=== PATIENT | female | born 1965 | race Two or more races ===

== ENCOUNTER 2024-12-16 18:32 | Inpatient (IN) | payer MEDICAID, SELFPAY ==
[2024-12-16 18:54] VITALS: BP 129/74; PULSE 84; RESP 16; TEMP 36.8; O2SAT 97; BMI 26.5
--- NOTE | 2024-12-16 19:03 | PD.EDRME ---
Rapid Medical Screening Exam RME Arrival date/time: 12/16/24 18:32 59-year-old female past medical history of hypertension, CVA, and EtOH presents emergency department complaining of nausea and shakiness after patient is attempting to detox from alcohol. Patient reports last drink was this morning. Chief Complaint: Flu Like Symptoms Time Seen by Provider: 12/16/24 18:34 Vital signs: Vital Signs Temperature 98.3 F 12/16/24 18:54 Pulse Rate 84 12/16/24 18:54 Respiratory Rate 16 12/16/24 18:54 Blood Pressure 129/74 12/16/24 18:54 Pulse Oximetry (%) 97 12/16/24 18:54 Oxygen Delivery Method Room Air 12/16/24 18:54 Vital signs reviewed by provider: Yes
--- NOTE | 2024-12-16 19:04 | EKG_ITS ---
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
[2024-12-16] MEDS: LORazepam 2 MG/ML VIAL IM (19:13)
[2024-12-16 19:25] LABS: Basophils % (Auto) 0 % (0-2.5); Eosinophils # (Auto) 0.1 Thou/mm3 (0.0-0.5); Eosinophils % (Auto) 1 % (0-10); Hematocrit 31.4 % (36.0-46.0); Hemoglobin 11.7 g/dL (12.0-16.0); Immature Granulocytes % (Auto) 0 % (0-0); Immature Granulocytes Auto 0.03 Thou/mm3 (0.00-0.00); Lymphocytes # (Auto) 0.5 Thou/mm3 (1.0-4.8); Lymphocytes % (Auto) 6 % (10-50); Mean Corpuscular HGB Conc 37.3 g/dl (31.0-37.0); Mean Corpuscular Hemoglobin 35.5 pg (25.0-35.0); Mean Corpuscular Volume 95 fL (80-100); Monocytes # (Auto) 0.4 Thou/mm3 (0.0-0.8); Monocytes % (Auto) 5 % (0-12); Neutrophils # (Auto) 7.6 Thou/mm3 (1.8-7.7); Neutrophils % (Auto) 88 % (37-80); Nucleated Red Blood Cell % 0 /100 WBC (0); RDW Standard Deviation 42.7 fL (36.4-46.3); White Blood Count 8.6 Thou/mm3 (3.6-11.0)
[2024-12-16 19:31] LABS: Platelet Count 60 Thou/mm3 (140-440)
[2024-12-16 19:42] LABS: INR 1.1 (0.9-1.3); Partial Thromboplastin Time 31.4 Seconds (22.0-36.0)
[2024-12-16 19:44] LABS: B-Type Natriuretic Peptide 38 pg/mL (0-100)
[2024-12-16 20:03] LABS: Slide Review Platelets confirmed
[2024-12-16 20:14] LABS: Collection Type, Urine Clean Catch
[2024-12-16 20:15] LABS: Alanine Aminotransferase 71 U/L (10-49); Albumin, Serum 4.8 gm/dL (3.5-5.0); Albumin/Globulin Ratio 1.5 (1.2-2.2); Alcohol, Blood Medical < 3.0 mg/dL (0-10.0); Alkaline Phosphatase 182 U/L (46-116); Anion Gap 9 (7-16); Aspartate Amino Transferase 217 U/L (0-34); BUN/Creatinine Ratio 21 Ratio (12-20); Bilirubin,Total 4.2 mg/dL (0.3-1.2); Blood Urea Nitrogen 17 mg/dL (9-23); Calcium 10.1 mg/dL (8.3-10.6); Calcium (Corrected) 10.1 mg/dL (8.5-10.1); Carbon Dioxide 29.8 mMol/L (20.0-31.0); Chloride 80 mMol/L (98-107); Creatinine (Component) 0.8 mg/dL (0.6-1.3); Estimated Creatinine Clearance 57.6 mL/min (>60); Globulin 3.3 gm/dL (2.3-3.5); Glucose 123 mg/dL (74-106); Magnesium 1.7 mg/dL (1.6-2.6); Osmolality,Calculated 242 (275-295); Potassium 3.5 mMol/L (3.4-5.1); Total Protein 8.1 gm/dL (5.7-8.2); Troponin I 0.023 ng/mL (0.0-0.045); eGFR > 60 See Note
[2024-12-16 20:19] LABS: Sodium 119 mMol/L (136-145)
[2024-12-16 20:33] LABS: Amphetamine/Methamp Scrn,U Negative (Negative); Barbiturate Screen,Urine Negative (Negative); Benzodiazepines Screen,Urine Negative (Negative); Benzoylecgonine Screen, Ur Negative (Negative); Fentanyl Screen,Urine Negative (Negative); Opiate Screen,Urine Negative (Negative); THC Screen,Urine Negative (Negative)
[2024-12-16 20:35] LABS: Bacteria,Urine Rare; Bilirubin,Urine Negative (Negative); Blood,Urine Negative (Negative); Clarity,Urine Turbid (Clear/Hazy); Color,Urine Yellow (Lt Yel-Yel); Glucose, Urine Negative (Negative); Ketones,Urine Trace (Negative); Leukocyte Esterase,Urine Negative (Negative); Nitrite,Urine Negative (Negative); Protein,Urine 1+ (Neg - Trace); RBC,Urine 6 /hpf (0-3); Specific Gravity,Urine 1.026 (1.001-1.035); Squamous Epithelial Cell,Urine < 1 /hpf (0-5); Urobilinogen,Urine OVER mg/dL (0.0-1.0); WBC,Urine 3 /hpf (0-5)
[2024-12-16 20:44] VITALS: BP 133/73; PULSE 91; RESP 17; TEMP 36.9; O2SAT 100
[2024-12-16 20:48] VITALS: BP 125/76; PULSE 77; RESP 18; O2SAT 100
--- NOTE | 2024-12-16 21:00 | EDNOTE_ITS ---
ED General RME/HPI General Chief complaint: Flu Like Symptoms Stated complaint: COUGH, N/V X 1 MO; EXTREME DEPRESSION, ETOH ABUSE Time Seen by Provider: 12/16/24 18:34 Arrival date/time: 12/16/24 18:32 CC: Shakiness, nausea. Patient states she has been drinking a bottle half of wine for the last 45 days after correction, patient states she has had several episodes of nausea vomiting. She last drink was this morning. The patient drinks approximately 1-1/2 bottles of wine a day. Patient denies fever chills chest pain shortness of breath or difficulty breathing. The patient states she retired from work 45 days ago and began drinking, and realized that she is now sick and tried to stop drinking, which time she came into the emergency room. RME / HPI RME / HPI narrative: 12/16/24 18:32 59-year-old female past medical history of hypertension, CVA, and EtOH presents emergency department complaining of nausea and shakiness after patient is attempting to detox from alcohol. Patient reports last drink was this morning. Related Data Home Medications ?Medication ?Instructions ?Recorded ?Confirmed escitalopram oxalate 10 mg tablet 20 mg PO QDAY 12/17/24 omeprazole 20 mg capsule,delayed 20 mg PO QDAY 5 12/17/24 release Previous Rx's ?Medication ?Instructions ?Recorded folic acid 1 mg tablet 1 mg PO BID 30 days #60 tabs 12/20/24 propranolol 10 mg tablet 10 mg PO BID 30 days #60 tab s 12/20/24 thiamine mononitrate (vit B1) 100 100 mg PO BID 30 day s #60 tabs 12/20/24 mg tablet valsartan 80 mg tablet 80 mg PO QDAY 30 days #30 ta bs 12/20/24 Allergies Allergy/AdvReac Type Severity Reaction Status Date / Time No Known Allergies Allergy Verified 12/16/24 18:35 Review of Systems Review of Systems Narrative Review of Systems: GEN: No fever, no chills, no weight loss EYES: No discharge, no visual changes, no pain HEENT: No ear pain, no congestion, no sore throat PULM: No shortness of breath, no cough, no congestion CV: No chest pain, no dyspnea on exertion, no palpitations GI: No nausea, no vomiting, no diarrhea, no pain, no constipation : No frequency, no urgency, no dysuria MUSC/SKEL: No joint pain, no back pain SKIN: No rash PSYCH: No hallucinations, no depression HEME/LYMPH: No easy bleeding or bruising tendencies NEURO: No weakness, no headache Past Medical History Past Medical History CARDIAC: Negative Congestive Heart Failure RESPIRATORY: Negative Chronic Obstructive Pulmonary Disease (COPD) GENITOURINARY: Negative Renal Disease ENDOCRINE: Negative Diabetes Mellitus Type 1 or Diabetes Mellitus Type 2 Social History SMOKING STATUS: Never smoker ED Exam Narrative Physical exam: [General: In mild discomfort but not in any acute distress Head normocephalic HEENT: Eyes pupils are PERRLA EOMs are intact mouth pink dry membranes uvula is midline swallow symmetrical phonation is normal. Within acceptable limits Neck is supple nontender, no JVD no edema Chest equal chest rise nontender to palpation Respiratory: Clear to auscultation no wheezes crackles or rubs CV: Rate rhythm is regular no murmurs rubs or clicks Abdomen is soft nontender no masses positive bowel sounds all 4 quadrants Back: No CVA tenderness no spinous process tenderness from cervical spine thoracic and lumbar spine Skin: Intact no petechiae rash induration ulceration or crepitus Extremities: Moving all extremity against resistance cap refill less than 2 seconds neurosensory intact Neuro: Awake alert oriented x2, person and place, Glascow coma 15 no focal deficits] Course Quality Measures none Orders Category Date Time Status EKG (ED ONLY) *Do not use* NOW Care 12/16/24 19:04 Completed EKG (ED Only) Stat Exams 12/16/24 19:04 Draft Alcohol, Blood Medical Stat Lab 12/16/24 19:08 Completed B-Type Natriuretic Peptide Stat Lab 12/16/24 19:08 Completed CBC Stat Lab 12/16/24 19:08 Completed Comprehensive Metabolic Panel Stat Lab 12/16/24 19:08 Completed Drug Screen,Urine Stat Lab 12/16/24 19:58 Completed Magnesium Stat Lab 12/16/24 19:08 Completed Partial Thromboplastin Time Stat Lab 12/16/24 19:08 Completed Prothrombin Time with INR Stat Lab 12/16/24 19:08 Completed Troponin I Stat Lab 12/16/24 19:08 Completed Urinalysis Stat Lab 12/16/24 19:58 Completed Folic Acid Inj Med 12/16/24 21:04 Discontinued 1 mg IVP X1 ONE LORazepam [Ativan Inj] Med 12/16/24 19:03 Discontinued 2 mg IM X1 ONE LORazepam [Ativan Inj] Med 12/16/24 21:20 Discontinued 2 mg IVP X1 ONE Sodium Chloride 0.9% 1000 ml [Ns] 1,000 ml Med 12/16/24 21:04 Discontinued IV 999 mls/hr Thiamine Inj [Vitamin B-1 Inj] Med 12/16/24 21:04 Discontinued 100 mg IVP X1 ONE Vital Signs Vital signs: Vital Signs Temperature 98.3 F 12/16/24 18:54 Pulse Rate 84 12/16/24 18:54 Respiratory Rate 16 12/16/24 18:54 Blood Pressure 129/74 12/16/24 18:54 Pulse Oximetry (%) 97 12/16/24 18:54 Oxygen Delivery Method Room Air 12/16/24 18:[address] [facility] Patient data External records reviewed:: [facility] previous records Clinical information provided by:: patient Social determinants that could affect healthcare access:: alcohol use Patient has the following chronic illnesses:: Alcoholism How is presenting disease/condition affected by chronic disease/condition?: e xacerbated by Evaluation data The following diagnostics were reviewed and interpreted by me:: lab results, radiology exam(s) and EKG tracing(s) Lab and/or radiology exams considered but not ordered:: CBC shows no leukocytosis H&H of 11.7 and 31.4. Platelet count of 60 Coags within acceptable limits Sodium of 119 potassium 3.5 chloride of 80 no renal impairment glucose at 123. Total bili at 4.2 AST 217 ALT 71 alk phos of 182 Troponin is 0.023 BNP is 38 Urine is turbid no signs of UTI U tox is negative Interpretation Summary: [facility] protocol of 10 will start the patient on IV Ativan. Patient will be admitted to the hospitalist Patient's case discussed with Dr. [place] resident for Dr. Christos Chua agrees to accept the patient for admission for hyponatremia and alcohol withdrawal. Medications Medications considered but not ordered:: None Medication administrations:: Medication Administration History Discontinued Medications Acetaminophen (Acetaminophen 325 Mg Tablet) 650 mg PO Q8H PRN PRN Reason: Fever >101.5 Stop: 01/15/25 22:24 Acetaminophen (Acetaminophen 325 Mg Tablet) 650 mg PO Q8H PRN PRN Reason: Fever >100.5 Stop: 01/15/25 22:24 Chlordiazepoxide HCl (Chlordiazepoxide Hcl 25 Mg Capsule) 50 mg PO Q8HR REPLACED BY [facility] Stop: 12/22/24 13:59 Last Admin: 12/17/24 13:05 Dose: 50 mg Documented By: ROMA Chlordiazepoxide HCl (Chlordiazepoxide Hcl 25 Mg Capsule) 100 mg PO Q8HR REPLACED BY [facility] Stop: 12/22/24 21:59 Chlordiazepoxide HCl (Chlordiazepoxide Hcl 25 Mg Capsule) 50 mg PO X1 ONE Stop: 12/17/24 15:10 Chlordiazepoxide HCl (Chlordiazepoxide Hcl 25 Mg Capsule) 50 mg PO TID REPLACED BY [facility] Stop: 12/24/24 05:59 Chlordiazepoxide HCl (Chlordiazepoxide Hcl 25 Mg Capsule) 25 mg PO Q8HR KATIE Stop: 12/23/24 22:59 Last Admin: 12/19/24 05:54 Dose: Not Given Documented By: KENYATTA Non-Admin Reason: HOLD PER DR. TOMLINSON Admin: 12/18/24 23:03 Dose: 25 mg Documented By: KENYATTA Chlordiazepoxide HCl (Chlordiazepoxide Hcl 25 Mg Capsule) 25 mg PO Q12HR REPLACED BY [facility] Stop: 12/24/24 20:59 Chlordiazepoxide HCl (Chlordiazepoxide Hcl 25 Mg Capsule) 25 mg PO Q8HR REPLACED BY [facility] Stop: 12/24/24 13:59 Last Admin: 12/20/24 05:28 Dose: 25 mg Documented By: Admin: 12/19/24 20:59 Dose: 25 mg Documented By: Admin: 12/19/24 13:55 Dose: 25 mg Documented By: JOAQUIN Chlordiazepoxide HCl (Chlordiazepoxide Hcl 25 Mg Capsule) 25 mg PO BID REPLACED BY [facility] Stop: 12/25/24 20:59 Phenobarbital Sodium 130 mg/ (Sodium Chloride 12 ml) 0 mg IVP X1 ONE Stop: 12/17/24 15:46 Last Admin: 12/17/24 15:57 Dose: 130 mg Documented By: ROMA Phenobarbital Sodium 130 mg/ (Sodium Chloride 12 ml) 0 mg IVP Q8HR REPLACED BY [facility] Stop: 12/18/24 16:00 Last Admin: 12/17/24 23:58 Dose: 130 mg Documented By: KENYATTA Comments: MIXED WITH 12 ML OF NS. VERIFIED WITH TIEN W,RN Phenobarbital Sodium 130 mg/ (Sodium Chloride 12 ml) 0 mg IVP X1 ONE Stop: 12/17/24 23:46 Last Admin: 12/17/24 23:56 Dose: Not Given Documented By: KENYATTA Non-Admin Reason: Duplicate Medication on eMAR Diphenhydramine HCl (Diphenhydramine Inj 50 Mg/Ml Vial) Confirm Administered Dose 50 mg .ROUTE .STK-MED ONE Stop: 12/18/24 18:46 Diphenhydramine HCl (Diphenhydramine Inj 50 Mg/Ml Vial) 25 mg IV PRNMRX1 PRN PRN Reason: MODERATE SEDATION Stop: 12/18/24 21:48 Fentanyl Citrate (Fentanyl Cit Inj 50 Mcg/Ml Amp 2ml) Confirm Administered Dose 100 mcg .ROUTE .STK-MED ONE Stop: 12/18/24 18:46 Fentanyl Citrate (Fentanyl Cit Inj 50 Mcg/Ml Amp 2ml) 50 mcg IV Q2M PRN PRN Reason: MODERATE SEDATION Stop: 12/18/24 21:48 Folic Acid (Folic Acid Inj 1 Mg/0.2 Ml) 1 mg IVP X1 ONE Stop: 12/16/24 21:05 Last Admin: 12/16/24 21:38 Dose: 1 mg Documented By: IDRIS Folic Acid (Folic Acid 1 Mg Tablet) 1 mg PO BID KATIE Stop: 12/21/24 22:44 Last Admin: 12/20/24 09:55 Dose: 1 mg Documented By: JOAQUIN(2) Admin: 12/19/24 20:57 Dose: 1 mg Documented By: Admin: 12/19/24 08:42 Dose: 1 mg Documented By: Admin: 12/18/24 21:03 Dose: 1 mg Documented By: Admin: 12/18/24 09:32 Dose: 1 mg Documented By: Admin: 12/17/24 20:36 Dose: 1 mg Documented By: Admin: 12/17/24 08:01 Dose: 1 mg Documented By: Admin: 12/16/24 22:51 Dose: Not Given Documented By: IDRIS Non-Admin Reason: Duplicate Medication on eMAR Sodium Chloride (Ns) 1,000 mls @ 999 mls/hr IV .Q1H1M ONE Stop: 12/16/24 22:04 Last Infusion: 12/16/24 22:19 Dose: Infused Documented By: Admin: 12/16/24 21:37 Dose: 999 mls/hr Documented By: IDRIS Sodium Chloride (Ns) 1,000 mls @ 57 mls/hr IV .[id number] ONE Stop: 12/17/24 16:03 Last Admin: 12/17/24 00:50 Dose: Not Given Documented By: TOO Non-Admin Reason: infusion rate changed from 57/hr to 20 mls/hr Ceftriaxone Sodium 1,000 mg/ (Sodium Chloride) 50 mls @ 100 mls/hr IV QDAY KATIE Stop: 12/23/24 23:58 Last Admin: 12/17/24 08:00 Dose: 100 mls/hr Documented By: Infusion: 12/17/24 00:53 Dose: Infused Documented By: Admin: 12/17/24 00:23 Dose: 100 mls/hr Documented By: TOO Sodium Chloride (Ns) 1,000 mls @ 20 mls/hr IV .Q24H ONE Stop: 12/18/24 00:37 Last Admin: 12/17/24 00:48 Dose: 20 mls/hr Documented By: TOO Dextrose (D5w) 400 mls @ 200 mls/hr IV .Q2H KATIE Stop: 12/17/24 04:14 Last Admin: 12/17/24 03:06 Dose: 200 mls/hr Documented By: TOO Magnesium Sulfate (Magnesium Sulfate Ivpb) 4 gm in 50 mls @ 12.5 mls/hr IV X1 ONE Stop: 12/17/24 12:55 Last Admin: 12/17/24 09:13 Dose: 12.5 mls/hr Documented By: SANDRITA Sodium Chloride (Ns) 1,000 mls @ 60 mls/hr IV .[id number] KATIE Stop: 01/18/25 14:46 Last Admin: 12/19/24 15:01 Dose: 60 mls/hr Documented By: VIDHYA Labetalol HCl (Labetalol Inj 5 Mg/Ml Vial 20 Ml) 10 mg IVP Q2H PRN PRN Reason: SBP >180mmHg Stop: 01/15/25 22:44 Labetalol HCl (Labetalol Inj 5 Mg/Ml Vial 20 Ml) 10 mg IVP Q6HR PRN PRN Reason: SBP >180mmHg Stop: 01/15/25 22:34 Lorazepam (Lorazepam 2 Mg/Ml Vial) 2 mg IM X1 ONE Stop: 12/16/24 19:04 Last Admin: 12/16/24 19:13 Dose: 2 mg Documented By: MANAN Lorazepam (Lorazepam 2 Mg/Ml Vial) 2 mg IVP X1 ONE Stop: 12/16/24 21:21 Last Admin: 12/16/24 21:38 Dose: 2 mg Documented By: IDRIS Lorazepam (Lorazepam 2 Mg/Ml Vial) 0.5 mg IV Q2HR PRN PRN Reason: CIWA SCORE 8-13 Stop: 12/21/24 22:30 Last Admin: 12/17/24 13:16 Dose: 0.5 mg Documented By: Admin: 12/17/24 10:57 Dose: 0.5 mg Documented By: Admin: 12/17/24 05:43 Dose: 0.5 mg Documented By: Admin: 12/17/24 03:34 Dose: 0.5 mg Documented By: TOO Lorazepam (Lorazepam 2 Mg/Ml Vial) 1 mg IV Q2HR PRN PRN Reason: CIWA SCORE 14-19 Stop: 12/21/24 22:30 Last Admin: 12/17/24 23:49 Dose: 1 mg Documented By: KENYATTA Comments: MARIE 17 Admin: 12/17/24 22:07 Dose: 1 mg Documented By: TOO Comments: Admin: 12/17/24 19:15 Dose: 1 mg Documented By: SANDRITA Lorazepam (Lorazepam 2 Mg/Ml Vial) 2 mg IV Q2HR PRN PRN Reason: CIWA SCORE 20-25 Stop: 12/21/24 22:30 Lorazepam (Lorazepam 2 Mg/Ml Vial) 2 mg IVP X1 ONE Stop: 12/17/24 14:02 Last Admin: 12/17/24 14:10 Dose: 2 mg Documented By: SANDRITA Midazolam HCl (Midazolam Inj 1 Mg/Ml Vial 2 Ml) Confirm Administered Dose 4 mg .ROUTE .STK-MED ONE Stop: 12/18/24 18:46 Midazolam HCl (Midazolam Inj 1 Mg/Ml Vial 2 Ml) 2 mg IV Q2M PRN PRN Reason: Moderate Sedation Stop: 12/18/24 21:48 Ondansetron HCl (Ondansetron Inj 2 Mg/Ml Inj 2 Ml) 4 mg IV Q6H PRN; Protocol PRN Reason: NAUSEA OR VOMITING Stop: 01/15/25 22:24 Pantoprazole Sodium (Pantoprazole Inj 40 Mg Vial) 40 mg IVP QDAY KATIE Stop: 01/16/25 08:59 Last Admin: 12/20/24 09:50 Dose: 40 mg Documented By: JOAQUIN(2) Admin: 12/19/24 08:42 Dose: 40 mg Documented By: Admin: 12/18/24 09:34 Dose: 40 mg Documented By: Admin: 12/17/24 08:02 Dose: 40 mg Documented By: SANDRITA Phenobarbital Sodium (Phenobarbital Inj 130 Mg/1 Ml Vial) Confirm Administered Dose 130 mg .ROUTE .STK-MED ONE Stop: 12/17/24 23:17 Last Admin: 12/17/24 23:57 Dose: Not Given Documented By: KENYATTA Non-Admin Reason: Duplicate Medication on eMAR Phenobarbital Sodium (Phenobarbital Inj 130 Mg/1 Ml Vial) 130 mg IVP Q8HR REPLACED BY [facility] Stop: 12/18/24 16:00 Last Admin: 12/18/24 13:31 Dose: 130 mg Documented By: HANH Potassium Chloride (Potassium Chloride 20 Meq Tabcr) 40 meq PO X1 ONE Stop: 12/17/24 07:31 Last Admin: 12/17/24 07:57 Dose: 40 meq Documented By: SANDRITA Potassium Chloride (Potassium Chloride 20 Meq Tabcr) 40 meq PO X1 ONE Stop: 12/18/24 09:46 Last Admin: 12/18/24 09:40 Dose: 40 meq Documented By: HANH Potassium Phos/Sodium Phos (Naph,[facility] 1 Packet (1.5 Gm)) 1 packet PO X1 ONE Stop: 12/17/24 07:31 Last Admin: 12/17/24 07:57 Dose: 1 packet Documented By: SANDRITA Potassium Phos/Sodium Phos (Naph,[facility] Mb[employer] 1 Packet (1.5 Gm)) 1 packet PO X1 ONE Stop: 12/18/24 12:04 Last Admin: 12/18/24 12:26 Dose: 1 packet Documented By: HANH Propranolol HCl (Propranolol 10 Mg Tablet) 10 mg PO BID REPLACED BY [facility] Stop: 01/18/25 20:59 Last Admin: 12/20/24 09:55 Dose: 10 mg Documented By: JOAQUIN(2) Admin: 12/19/24 20:57 Dose: 10 mg Documented By: KYLIE Thiamine HCl (Thiamine Inj 100 Mg/Ml Vial 2 Ml) 100 mg IVP X1 ONE Stop: 12/16/24 21:05 Last Admin: 12/16/24 21:38 Dose: 100 mg Documented By: IDRIS Thiamine HCl (Thiamine 100 Mg Tablet) 100 mg PO BID KATIE Stop: 12/22/24 08:59 Last Admin: 12/20/24 09:55 Dose: 100 mg Documented By: JOAQUIN(2) Admin: 12/19/24 20:57 Dose: 100 mg Documented By: Admin: 12/19/24 08:42 Dose: 100 mg Documented By: Admin: 12/18/24 21:03 Dose: 100 mg Documented By: Admin: 12/18/24 09:32 Dose: 100 mg Documented By: Admin: 12/17/24 20:36 Dose: 100 mg Documented By: Admin: 12/17/24 08:02 Dose: 100 mg Documented By: SANDRITA Thiamine HCl (Thiamine Inj 100 Mg/Ml Vial 2 Ml) 100 mg IM STAT STA Stop: 12/16/24 22:32 Last Admin: 12/16/24 22:49 Dose: Not Given Documented By: IDRIS Non-Admin Reason: Duplicate Medication on eMAR None Consultations Consultation(s) initiated? (list below): No Diagnosis Differential Diagnosis ED Complaint MDM: Alcohol withdrawal electrolyte imbalances renal impairment Most likely diagnosis given after review of the tests above:: Alcohol withdrawal electrolyte imbalance Admission Indicated Admission indicated?: indicated Explain why admission is indicated or not indicated:: Requires further medical management Admission Request Was there a request for admission?: No Disposition Plan Disposition Plan: Admit Medical Decision Making Differential Diagnosis Differential Diagnosis: Alcohol withdrawal electrolyte imbalances renal impairment Lab Data 12/20/24 05:03 12/20/24 05:03 Labs: Lab Results 12/16/24 12/16/24 Range/Units 19:08 19:58 WBC 8.6 (3.6-11.0) Thou/mm3 RBC 3.30 L (4.00-5.20) Miln/mm3 Hgb 11.7 L (12.0-16.0) g/dL Hct 31.4 L (36.0-46.0) % MCV 95 (80-100) fL MCH 35.5 H (25.0-35.0) pg MCHC 37.3 H (31.0-37.0) g/dl RDW Std Deviation 42.7 (36.4-46.3) fL Plt Count 60 L (140-440) Thou/mm3 Neut % (Auto) 88 H (37-80) % Lymph % (Auto) 6 L (10-50) % [place] % (Auto) 5 (0-12) % Eos % (Auto) 1 (0-10) % Baso % (Auto) 0 (0-2.5) % Neut # (Auto) 7.6 (1.8-7.7) Thou/mm3 Lymph # (Auto) 0.5 L (1.0-4.8) Thou/mm3 [place] # (Auto) 0.4 (0.0-0.8) Thou/mm3 Eos # (Auto) 0.1 (0.0-0.5) Thou/mm3 Baso # (Auto) 0.0 (0.0-0.2) Thou/mm3 Immature Gran # (Auto) 0.03 H (0.00-0.00) Thou/mm3 Absolute Nucleated RBC 0.00 (0.00-0.00) Thou/mm3 Immature Gran % 0 (0-0) % Nucleated RBC % 0 (0) /100 WBC PT 12.0 (9.0-12.2) Seconds INR 1.1 (0.9-1.3) APTT 31.4 (22.0-36.0) Seconds Sodium 119 L* (136-145) mMol/L Potassium 3.5 (3.4-5.1) mMol/L Chloride 80 L (98-107) mMol/L Carbon Dioxide 29.8 (20.0-31.0) mMol/L Anion Gap 9 (7-16) BUN 17 (9-23) mg/dL Creatinine 0.8 (0.6-1.3) mg/dL Estim Creat Clear Calc 57.6 L (>60) mL/min eGFR > 60 (60 - ) See Note BUN/Creatinine Ratio 21 H (12-20) Ratio Glucose 123 H (74-106) mg/dL Calculated Osmolality 242 L (275-295) Calcium 10.1 (8.3-10.6) mg/dL Corrected Calcium 10.1 (8.5-10.1) mg/dL Magnesium 1.7 (1.6-2.6) mg/dL Total Bilirubin 4.2 H (0.3-1.2) mg/dL AST 217 H (0-34) U/L ALT 71 H (10-49) U/L Alkaline Phosphatase 182 H (46-116) U/L Troponin I 0.023 (0.0-0.045) ng/mL B-Natriuretic Peptide 38 (0-100) pg/mL Total Protein 8.1 (5.7-8.2) gm/dL Albumin 4.8 (3.5-5.0) gm/dL Globulin 3.3 (2.3-3.5) gm/dL Albumin/Globulin Ratio 1.5 (1.2-2.2) Ur Collection Type Clean Catch Urine Color Yellow (Lt Yel-Yel) Urine Clarity Turbid A (Clear/Hazy) Urine pH 8.0 H (5.0-7.0) Ur Specific [place] 1.026 (1.001-1.035) Urine Protein 1+ A (Neg - Trace) Urine Glucose (UA) Negative (Negative) Urine Ketones Trace (Negative) Urine Blood Negative (Negative) Urine Nitrite Negative (Negative) Urine Bilirubin Negative (Negative) Urine Urobilinogen (Auto) OVER (0.0-1.0) mg/dL Ur Leukocyte Esterase Negative (Negative) Urine RBC 6 H (0-3) /hpf Urine WBC 3 (0-5) /hpf Ur Squamous Epith Cells < 1 (0-5) /hpf Urine Bacteria Rare (None) Urine Opiates Screen Negative (Negative) Urine Fentanyl Screen Negative (Negative) Ur Barbiturates Screen Negative (Negative) U Amphetamin/Meth Scrn Negative (Negative) U Benzodiazepines Scrn Negative (Negative) U Cocaine Metab Screen Negative (Negative) U Marijuana (THC) Screen Negative (Negative) Ethyl Alcohol < 3.0 (0-10.0) mg/dL Misc Test Result Platelets confirmed Discharge Plan Plan Patient Disposition: Admit Acute Care w/in Hospital Patient condition on transfer: Stable Problem List Clinical Impression: Acute hyponatremia, Alcohol withdrawal Patient/Caregiver Discharge Instructions Discharge Activity: resume usual activities PA/INSPECTOR TYPE Supervising Physician PA/INSPECTOR TYPE Supervising Physician: Juan Godoy ENP
[2024-12-16] MEDS: SODIUM CHLORIDE 0.9% 1000 ML 1,000 ML 999 ML IV (21:37)
[2024-12-16] MEDS: THIAMINE INJ 100 MG/ML VIAL 2 ML IVP (21:38)
[2024-12-16] MEDS: FOLIC ACID INJ 1 MG/0.2 ML IVP (21:38)
[2024-12-16] MEDS: LORazepam 2 MG/ML VIAL IVP (21:38)
[2024-12-16 22:13] VITALS: BP 125/79; PULSE 80; RESP 19; TEMP 36.9; O2SAT 100
--- NOTE | 2024-12-16 22:29 | XR_ITS ---
Examination: AP chest single view Technique one AP portable upright chest single view Exam date and time: December 16, 2024 10:40 PM Indications: Shortness of breath today. Findings: Normal heart size Lungs are clear. The osseous structures are intact Impression: No active disease
--- NOTE | 2024-12-16 23:09 | ESHP_ITS ---
Documentation for date of: 12/16/24 HPI History of Present Illness Chief complaint: Alcohol withdrawal for 1 day History of present illness: HPI: A 59-year-old female patient with past medical history of hypertension, alcohol use disorder presented to the ED with her sister after she started to experience nausea and vomiting associated with chills and tremors. Patient reported that for the past 45 days she started to binge drink wine after she retired. She reported that she has been drinking on daily basis for many years before. Her last drink was this morning. Patient reported that she has been trying to cut off on her drinking however she feels. She mentioned that her PCP prescribed her pills to help with the alcohol drinking however she stopped taking them. On further questioning patient said that he has had multiple episodes of alcohol withdrawal however she did not experience any seizure or visual hallucination. On further questioning patient also reported that 2 weeks ago she started to see fresh blood per rectum in which she believes is from her hemorrhoids because of the her nausea and vomiting that has been going on whenever she tried to stop drinking. Patient denied any hematemesis, denied any jaundice, itching, abdominal distention. Her sister reported that that sometimes she drink and that she is not able to function and not able to feed herself. Patient denied any recent fall. Home medications: Valsartan/hydrochlorothiazide ED course: On presentation patient was noted to be jittery, CIWA score was 10 after she was given lorazepam p.o. by the ED physician. Vitally patient was stable, CBC showed hemoglobin of 11.7, platelets significantly low of 60, PT is 12 and INR 1.1, sodium level was 119, chloride of 80, carbon dioxide normal 29.8, BUN of 17, serum creatinine 0.8, glucose 123, calcium 10.1, T. bili noticed to be significantly elevated 4.2 AST and ALT 217 and 71 respectively and alkaline phosphatase 182 troponin and BNP within normal limits. Patient was given at the ED all the lorazepam, folic acid and thiamine. PMH: As above Social hx: Alcohol: Drink wine daily, recently patient was retired and she binge drink for the past 45 days Tobacco: Denied Illicit drugs: Denied Allergies: No known allergies Review of Systems Review of Systems Systems Reviewed: All systems reviewed, normal except as documented Exam Vital Signs Temp Pulse Resp BP Pulse Ox O2 Del Method 98.4 F 80 19 125/79 100 Room Air 12/16/24 22:13 12/16/24 22:13 12/16/24 22:13 12/16/24 22:13 12/16/24 22:13 12/16/24 22:13 Narrative Exam GEN: AOx3, able to speak full sentences, jittery HEENT: NC/AC, nonicteric, PERRLA, oral mucosa moist, neck supple CVS: RRR, S1-S2 present, no murmurs appreciated RESP: CTAB GI: soft,non distended, non tender, NBS MSK: able to move all 4 limbs, no lower extremity edema SKIN: warm and dry NURSE'S AIDES TEACHER: CN II-XII and Sensation grossly intact. Results: Labs 12/16/24 19:08 12/16/24 22:58 Labs: Short CBC 12/16/24 Range/Units 19:08 WBC 8.6 (3.6-11.0) Thou/mm3 Hgb 11.7 L (12.0-16.0) g/dL Hct 31.4 L (36.0-46.0) % Plt Count 60 L (140-440) Thou/mm3 BMP 12/16/24 19:08 Sodium 119 L* Potassium 3.5 Chloride 80 L Carbon Dioxide 29.8 BUN 17 Creatinine 0.8 Glucose 123 H Calcium 10.1 Cardiac Enzymes 12/16/24 Range/Units 19:08 Troponin I 0.023 (0.0-0.045) ng/mL Liver Function 12/16/24 Range/Units 19:08 Total Bilirubin 4.2 H (0.3-1.2) mg/dL AST 217 H (0-34) U/L ALT 71 H (10-49) U/L Alkaline Phosphatase 182 H (46-116) U/L Albumin 4.8 (3.5-5.0) gm/dL Urine 12/16/24 Range/Units 19:58 Urine Color Yellow (Lt Yel-Yel) Urine Clarity Turbid A (Clear/Hazy) Urine pH 8.0 H (5.0-7.0) Ur Specific [place] 1.026 (1.001-1.035) Urine Protein 1+ A (Neg - Trace) Urine Glucose (UA) Negative (Negative) Quality Measures Quality Measures VTE prophylaxis Medications Home Medications and Allergies Allergies Allergy/AdvReac Type Severity Reaction Status Date / Time No Known Allergies Allergy Verified 12/16/24 18:35 Visit Medications Acetaminophen (Acetaminophen 325 Mg Tablet) 650 mg PO Q8H PRN PRN Reason: Fever >101.5 Stop: 01/15/25 22:24 Folic Acid (Folic Acid 1 Mg Tablet) 1 mg PO BID [facility] Stop: 12/21/24 22:44 Last Admin: 12/16/24 22:51 Dose: Not Given Sodium Chloride (Ns) 1,000 mls @ 57 mls/hr IV .[id number] ONE Stop: 12/17/24 16:03 Labetalol HCl (Labetalol Inj 5 Mg/Ml Vial 20 Ml) 10 mg IVP Q2H PRN PRN Reason: SBP >180mmHg Stop: 01/15/25 22:44 Lorazepam (Lorazepam 2 Mg/Ml Vial) 0.5 mg IV Q2HR PRN PRN Reason: CIWA SCORE 8-13 Stop: 12/21/24 22:30 Lorazepam (Lorazepam 2 Mg/Ml Vial) 1 mg IV Q2HR PRN PRN Reason: CIWA SCORE 14-19 Stop: 12/21/24 22:30 Lorazepam (Lorazepam 2 Mg/Ml Vial) 2 mg IV Q2HR PRN PRN Reason: CIWA SCORE 20-25 Stop: 12/21/24 22:30 Ondansetron HCl (Ondansetron Inj 2 Mg/Ml Inj 2 Ml) 4 mg IV Q6H PRN; Protocol PRN Reason: NAUSEA OR VOMITING Stop: 01/15/25 22:24 Pantoprazole Sodium (Pantoprazole Inj 40 Mg Vial) 40 mg IVP QDAY [facility] Stop: 01/16/25 08:59 Thiamine HCl (Thiamine 100 Mg Tablet) 100 mg PO BID [facility] Stop: 12/22/24 08:59 Discontinued Medications Folic Acid (Folic Acid Inj 1 Mg/0.2 Ml) 1 mg IVP X1 ONE Stop: 12/16/24 21:05 Last Admin: 12/16/24 21:38 Dose: 1 mg Sodium Chloride (Ns) 1,000 mls @ 999 mls/hr IV .[id number] ONE Stop: 12/16/24 22:04 Last Infusion: 12/16/24 22:19 Dose: Infused Lorazepam (Lorazepam 2 Mg/Ml Vial) 2 mg IM X1 ONE Stop: 12/16/24 19:04 Last Admin: 12/16/24 19:13 Dose: 2 mg Lorazepam (Lorazepam 2 Mg/Ml Vial) 2 mg IVP X1 ONE Stop: 12/16/24 21:21 Last Admin: 12/16/24 21:38 Dose: 2 mg Thiamine HCl (Thiamine Inj 100 Mg/Ml Vial 2 Ml) 100 mg IVP X1 ONE Stop: 12/16/24 21:05 Last Admin: 12/16/24 21:38 Dose: 100 mg Thiamine HCl (Thiamine Inj 100 Mg/Ml Vial 2 Ml) 100 mg IM STAT STA Stop: 12/16/24 22:32 Last Admin: 12/16/24 22:49 Dose: Not Given Assessment & Plan Plan Summary: A 59-year-old female patient with past medical history of hypertension, alcohol use disorder presented to the ED with her sister after she started to experience nausea and vomiting associated with chills and tremors. Patient reported that for the past 45 days she started to binge drink wine after she retired. She reported that she has been drinking on daily basis for many years before. Patient was admitted for treatment of severe asymptomatic hyponatremia and alcohol withdrawal syndrome. Assessment and plan #Severe asymptomatic hyponatremia DDx : most likely potomania versus medication side effect versus questionable alcohol-related cirrhosis Patient recently has been binge drinking for the past 45 days, she reported that she is taking blood pressure medication losartan/hydrochlorothiazide. Patient denied any seizure activities, denied any history of fall Serum sodium on presentation 119 mEq Plan ? Nephrology consultation to Dr. Liz was ordered ? Admit patient to telemetry ? Neurocheck every 4 hours ? Start the patient on normal saline 57 mL/h for 1 L then hold IV fluids ? Strict in and out ? Sodium check every 3 hours ? Urine sodium level random #History of alcohol use disorder #Alcohol withdrawal syndrome #Alcohol-related hepatitis #Alcohol-related cirrhosis rule out Patient has long history of chronic alcohol use disorder, presented today with jitteriness, shakiness, nausea and vomiting. Denied any seizures or visual hallucination. Last drink was this morning, serum alcohol level was normal, U tox was negative On evaluation today noticed to have elevated AST to ALT more than 2, T bilirubin 4.2, elevated alk phos, PT and INR within normal limits Platelets of 60, no previous imaging. Given these labs we believe the patient may have alcohol related acute hepatitis with possible underlying chronic alcohol-related hepatitis. Madrey discrimination function score is 4.2 which indicate good prognosis and the patient may benefit from steroid however we will hold on starting the patient on steroid until we rule out any ongoing infection. Plan ? Neurochecks every 4 hours ? CIWA protocol lorazepam based ? Start the patient on thiamine and folic acid daily ? Acute hepatic panel ? Abdominal ultrasound, with consideration of paracentesis if ascites was noticed ? Consider starting the patient on prednisolone for treatment of alcohol-related acute hepatitis if no source of infection was found ? Daily CMP, coag panel, CBC ? Refer to social services designee #History of lower GI bleed Patient reported that she believes that her hemorrhoids blood because of her vomiting. She denied any previous episode of hematochezia or hematemesis. Patient denied any melena before or at this time. Because the patient has acute with possible chronic liver injury secondary to her alcoholism we suspect the patient may have esophageal varices Plan ? GI consultation ? Daily CBC to monitor hemoglobin ? Avoid blood thinners at this time #History of hypertension Plan ? Hold home medications ? Put the patient on labetalol 10 mg IV every 2 hours as needed for SBP more than 180 mmHg Hospital Maintenance: FEN: Regular diet DVT ppx: SCD GI ppx: Protonix IV lines: PIV Chapa: None Code status: Full code Dispo: Telemetry - Patient's plan and care discussed with my attending, Dr. Melisa Bowers MD Internal Medicine PGY-2 Attending Provider Attestation/Addendum I attest that I was physically present for the evaluation, physical examination, lab and imaging review of the patient with the residents. I discussed the case with the residents and agree with the findings and plans of care as documented above. Patient is a 59 years old female with past medical history of hypertension and alcohol use disorder who presented to the ED with complaint of tremors and nausea/vomiting. Patient has been drinking alcohol regularly for many years but for the last 45 days she has been drinking significantly more, mostly wine following her correction. She also has decreased oral intake. Patient also had episode of blood from rectum, 2 weeks back. She has also been having cough and complaint of abdominal muscle pain while coughing. In the ED, she was found to have vitals within normal limits. Hemoglobin is 11.7, platelets 60, PT/INR 12/1.1, sodium 119, chloride 80, total bilirubin 4.2, AST/ALT 217/71. Her CIWA score in the ED was 10. We will admit the patient for management of severe asymptomatic hyponatremia, alcohol use disorder and alcohol withdrawal. Discussed with nephrology regarding hyponatremia, recommended to start normal saline at 1 mL/kg/h. We will do frequent sodium checks, strict ins and outs and urine electrolytes. Patient is started on CIWA protocol for alcohol withdrawal. We will obtain abdominal ultrasound, liver panel, thiamine and folate. We will also obtain GI consult for concern of lower GI bleed, FOBT. We will also start Protonix, Rocephin and closely monitor her hemoglobin level. Since patient has been having cough, we will also obtain a chest x-ray to rule out any lung pathology. Emerald Vincent MD
--- NOTE | 2024-12-16 23:19 | PC.NURSE ---
REPORT GIVEN TO ALONSO BELL ALL QUESTIONS ASKED AND ANSWERED. PATIENT TRANSFERRED TO FLOOR WITH STAFF. PATIENT REMAINS ON ROOM AIR. NO DISTRESS NOTED.
[2024-12-16 23:36] LABS: Sodium 122 mMol/L (136-145)
[2024-12-17] VITALS (8 sets, daily range): BP systolic 105–130; BP diastolic 60–78; PULSE 75–111; RESP 15–98; TEMP 36.3–36.5; O2SAT 94–99; BMI 26.3
[2024-12-17] MEDS: cefTRIAXone 1,000 MG in SODIUM CHLORIDE 0.9% (Popper) 50 ML 100 MG IV ×2 (00:23→08:00)
[2024-12-17] MEDS: SODIUM CHLORIDE 0.9% 1000 ML 1,000 ML 20 ML IV (00:48)
[2024-12-17 01:35] LABS: Sodium 124 mMol/L (136-145)
--- NOTE | 2024-12-17 01:50 | XR_ITS ---
Examination: Abdomen sonogram, complete Date and time of exam: December 17, 2024 0230 hrs. Indications: Elevated liver enzymes on laboratory examination today, discomfort in the right upper abdomen today. Technique: Multiple real-time grayscale transabdominal sonographic images of the abdomen have been obtained. Findings: Gallbladder not visualized Common bile duct 0.50 cm Pancreas obscured by bowel gas Liver 12.9 cm no liver lesions Normal hepatopedal portal venous flow Patent IVC Impression: Gallbladder is not visualized, clinical correlation advised, repeat this study with fasting as clinically warranted
[2024-12-17] MEDS: WATER IV (03:06)
[2024-12-17] MEDS: DEXTROSE 5% IV (03:06)
[2024-12-17] MEDS: LORazepam 2 MG/ML VIAL 0.5 MG IV ×4 (03:34→13:16)
--- NOTE | 2024-12-17 03:38 | PRELIM_ITS ---
Ultrasound Abdomen with doppler and wave doppler spectral analysis. December 17, 2024 0230 hours Clinical history: Elevated liver enzymes. Technique: Grayscale and color flow images of the abdomen are provided. Hepatic and portal veins were also imaged with color flow images. Comparison: No prior study is available for comparison. Findings: The liver demonstrates increased echogenicity. No intrahepatic biliary ductal dilatation. The gallbladder is not clearly visualized. The common bile duct is normal in caliber at 4.6 mm. No free fluid is demonstrated on the submitted images. The pancreas is not visualized. The imaged portions of the right kidney are within normal limits. The portal vein is patent with hepatopetal flow and normal wave Doppler spectral analysis. The inferior vena cava is patent with monophasic wave Doppler spectral analysis. Impression: Liver steatosis, consider state appendicitis in the differential diagnosis. Gallbladder is not revisualize. Consider correlation with MRCP. Report Electronically Signed By: Timmy Bull 12/17/2024 3:38:11 AM [EST]
[2024-12-17 05:39] LABS: Basophils % (Auto) 0 % (0-2.5); Eosinophils # (Auto) 0.2 Thou/mm3 (0.0-0.5); Eosinophils % (Auto) 4 % (0-10); Hematocrit 26.5 % (36.0-46.0); Hemoglobin 9.8 g/dL (12.0-16.0); Immature Granulocytes % (Auto) 0 % (0-0); Immature Granulocytes Auto 0.02 Thou/mm3 (0.00-0.00); Lymphocytes # (Auto) 0.4 Thou/mm3 (1.0-4.8); Lymphocytes % (Auto) 7 % (10-50); Mean Corpuscular Hemoglobin 35.6 pg (25.0-35.0); Mean Corpuscular Volume 96 fL (80-100); Monocytes # (Auto) 0.3 Thou/mm3 (0.0-0.8); Monocytes % (Auto) 6 % (0-12); Neutrophils % (Auto) 83 % (37-80); Nucleated Red Blood Cell % 0 /100 WBC (0); RDW Standard Deviation 43.2 fL (36.4-46.3); Red Blood Count 2.75 Miln/mm3 (4.00-5.20)
[2024-12-17 06:00] LABS: INR 1.1 (0.9-1.3); Platelet Count 51 Thou/mm3 (140-440); Prothrombin Time 12.4 Seconds (9.0-12.2)
[2024-12-17 06:24] LABS: Slide Review Platelets confirmed
[2024-12-17 06:44] LABS: Alanine Aminotransferase 62 U/L (10-49); Albumin, Serum 4.2 gm/dL (3.5-5.0); Albumin/Globulin Ratio 1.7 (1.2-2.2); Alkaline Phosphatase 153 U/L (46-116); Anion Gap 10 (7-16); Aspartate Amino Transferase 209 U/L (0-34); BUN/Creatinine Ratio 22 Ratio (12-20); Bilirubin,Total 3.3 mg/dL (0.3-1.2); Blood Urea Nitrogen 13 mg/dL (9-23); Calcium 9.3 mg/dL (8.3-10.6); Calcium (Corrected) 9.3 mg/dL (8.5-10.1); Carbon Dioxide 27.4 mMol/L (20.0-31.0); Cardiac Risk Estimate 1.7 RATIO (3.7-5.6); Chloride 87 mMol/L (98-107); Cholesterol 238 mg/dL (132-200); Creatinine (Component) 0.6 mg/dL (0.6-1.3); Estimated Creatinine Clearance 76.5 mL/min (>60); Globulin 2.5 gm/dL (2.3-3.5); Glucose 103 mg/dL (74-106); HDL Cholesterol 140 mg/dL (40-60); LDL Cholesterol,Calculated 83 mg/dL (0-130); Magnesium 1.6 mg/dL (1.6-2.6); Osmolality,Calculated 249 (275-295); Phosphorous 1.9 mg/dL (2.4-5.1); Potassium 2.9 mMol/L (3.4-5.1); Sodium 124 mMol/L (136-145); Thyroid Stimulating Hormone 2.54 uIU/mL (0.55-4.78); Total Protein 6.7 gm/dL (5.7-8.2); Triglycerides 73 mg/dL (30-150); eGFR > 60 See Note
[2024-12-17 07:17] LABS: Hepatitis A Antibody IgM Non Reactive (Non React); Hepatitis B Core Antibody IgM Non Reactive (Non React); Hepatitis B Surface Antigen Non Reactive (Non React); Hepatitis C Antibody Non Reactive (Non React)
[2024-12-17] MEDS: NAPH,KPH MBDB 1 PACKET (1.5 GM) PO (07:57)
[2024-12-17] MEDS: POTASSIUM CHLORIDE 20 mEq TABCR 40 MEQ PO (07:57)
[2024-12-17] MEDS: FOLIC ACID 1 MG TABLET PO ×2 (08:01→20:36)
[2024-12-17] MEDS: PANTOPRAZOLE INJ 40 MG VIAL IVP (08:02)
[2024-12-17] MEDS: THIAMINE 100 MG TABLET PO ×2 (08:02→20:36)
[2024-12-17 08:16] LABS: Sodium 124 mMol/L (136-145)
[2024-12-17] MEDS: Magnesium Sulfate 4 GM Ivpb 4 GM/50 ML BAG IV (09:13)
--- NOTE | 2024-12-17 09:19 | ESCONSULT_ITS ---
HPI Data of Consult Consult date: 12/17/24 Requesting Physician: Emerald Vincent MD Admitting Provider: Emerald Vincent MD Attending Provider: Emerald Vincent MD Primary Care Provider: Physician No Primary/Family Consult Narrative Reason for consult: Hyponatremia History of present illness: Patient is still confused and disoriented to time and place. So most of the history is taken from her sister on the bedside. Ms. Fitzpatrick is a 59-year-old female with past medical history of hypertension, depression, alcohol abuse disorder was brought to the ED by her sister with chief complaints of sweating, paleness and confusion. Patient's sister stated that patient is having alcohol use disorder for more than 10 years from now and since then she had multiple episodes of withdrawal and tried rehabilitation multiple times without success. Patient was supposedly retired 1 month ago since which her alcohol intake increased with low food intake. On 12/15/2024, patient was brought by her sister from [place] where she lives as the patient is continuing to drink alcohol without any food intake and became so weak to [place]. On 12/16/2024, patient had alcohol intake in the morning and in the afternoon noted severe sweating and palor for which patient was initially taken to urgent care and she was referred later to our emergency department. Denies loss of consciousness, involuntary movements, nausea, vomiting, diarrheal episodes ED Course: -Initial vitals were blood pressure 129/74 mmHg, pulse rate 84 bpm, respiratory rate 16/min, temperature 98.3 ?F, SpO2 97% with room air -Labs are significant for Hb 11.7, platelets 60, sodium 119, potassium 3.5, chloride 80, bicarb 29.8, BUN 17, creatinine 0.8, total bilirubin 4.2, AST 217, ALT 71, ALP 182. Urine toxicology tested negative for drug screen -In the ED, patient was given benzodiazepines, thiamine -Patient was admitted for hyponatremia and alcohol withdrawal Past medical history: Hypertension, depression, alcohol use disorder Social history: , lives alone, alcohol abuse since more than 10 years, denies smoking, other illicit drug abuse Medication history: Metoprolol, omeprazole, valsartan hydrochlorothiazide Allergies: NKDA cc:: cc: Emerald Vincent MD Review of Systems Review of Systems Narrative Review of Systems: Constitutional: No Weight Change, No Fever, Chills, No Night Sweats, No Fatigue, No Malaise ENT/Mouth: No Hearing Changes, No Ear Pain, No Nasal Congestion, No Sinus Pain, No Hoarseness, No sore throat, No Rhinorrhea, No Swallowing Difficulty Eyes: No Eye Pain, No Swelling, No Redness, No Foreign Body, No Discharge, No Vision Changes Cardiovascular: No Chest Pain, No SOB, No PND, No Dyspnea on Exertion, No Orthopnea, No Edema, No Palpitations Respiratory: No Cough, No Sputum, No Wheezing, No Dyspnea Gastrointestinal: No Nausea, No Vomiting, No Diarrhea, No Constipation, No Pain, No Heartburn, No Anorexia, No Dysphagia, No Hematochezia, No Melena, No Flatulence, No Jaundice Genitourinary: No Dysuria, No Urinary Frequency, No Hematuria, No Urinary Incontinence, No Urgency, No Flank Pain, No Urinary Flow Changes, No Hesitancy Musculoskeletal: No Arthralgias, No Myalgias, No Joint Swelling, No Joint Stiffness, No Back Pain, No Neck Pain, No Injury History Skin: No Skin Lesions, No Pruritis Neuro: Patient confused Past Medical History Past Medical History CARDIAC: Positive Hypertension PSYCHO/SOCIAL: Positive Depression Social History SMOKING STATUS: Never smoker ALCOHOL: Current ALCOHOL LAST INTAKE: Just Prior to Arrival HOUSING: House LIVES WITH: Alone OCCUPATION: RETIRED Exam Vital Signs Temp Pulse Resp BP Pulse Ox O2 Del Method 97.7 F 75 15 107/60 97 Room Air 12/17/24 04:00 12/17/24 04:00 12/17/24 04:00 12/17/24 04:00 12/17/24 04:00 12/17/24 04:00 Narrative Exam General: Awake. HEENT: Normocephalic, atraumatic, mucous membranes moist. Heart: Regular rate and rhythm, no murmurs. Lungs: Clear to auscultation with no wheezing or crackles. Abdomen: Soft, nondistended, nontender, positive bowel sounds. ?No guarding or rebound tenderness. Neurologic: Patient seems to be confused. Tremors noted Extremities: No edema. Skin: No rash or ecchymoses. Results Labs 12/17/24 05:05 12/17/24 19:02 Labs: Short CBC 12/16/24 12/17/24 Range/Units 19:08 05:05 WBC 8.6 6.0 (3.6-11.0) Thou/mm3 Hgb 11.7 L 9.8 L (12.0-16.0) g/dL Hct 31.4 L 26.5 L (36.0-46.0) % Plt Count 60 L 51 L (140-440) Thou/mm3 BMP 12/16/24 12/16/24 12/17/24 19:08 22:58 01:16 Sodium 119 L* 122 L 124 L Potassium 3.5 Chloride 80 L Carbon Dioxide 29.8 BUN 17 Creatinine 0.8 Glucose 123 H Calcium 10.1 12/17/24 12/17/24 05:05 07:18 Sodium 124 L 124 L Potassium 2.9 L D Chloride 87 L Carbon Dioxide 27.4 BUN 13 Creatinine 0.6 Glucose 103 Calcium 9.3 Cardiac Enzymes 12/16/24 Range/Units 19:08 Troponin I 0.023 (0.0-0.045) ng/mL Liver Function 12/16/24 12/17/24 Range/Units 19:08 05:05 Total Bilirubin 4.2 H 3.3 H D (0.3-1.2) mg/dL AST 217 H 209 H (0-34) U/L ALT 71 H 62 H (10-49) U/L Alkaline Phosphatase 182 H 153 H D (46-116) U/L Albumin 4.8 4.2 D (3.5-5.0) gm/dL Urine 12/16/24 Range/Units 19:58 Urine Color Yellow (Lt Yel-Yel) Urine Clarity Turbid A (Clear/Hazy) Urine pH 8.0 H (5.0-7.0) Ur Specific [place] 1.026 (1.001-1.035) Urine Protein 1+ A (Neg - Trace) Urine Glucose (UA) Negative (Negative) Quality Measures Quality Measures VTE prophylaxis Medications Home Medications and Allergies Home Medications ?Medication ?Instructions ?Recorded ?Confirmed ?Type escitalopram oxalate 10 mg tablet 20 mg PO QDAY 12/17/24 History metoprolol succinate 100 mg 100 mg PO QDAY 12/17/24 History tablet,extended release 24 hr omeprazole 20 mg capsule,delayed 20 mg PO QDAY 5 12/17/24 History release valsartan 160 1 tab PO QDAY 12/17/2412/17 History mg-hydrochlorothiazide 25 mg tablet Allergies Allergy/AdvReac Type Severity Reaction Status Date / Time No Known Allergies Allergy Verified 12/16/24 18:35 Visit Medications Acetaminophen (Acetaminophen 325 Mg Tablet) 650 mg PO Q8H PRN PRN Reason: Fever >101.5 Stop: 01/15/25 22:24 Folic Acid (Folic Acid 1 Mg Tablet) 1 mg PO BID [facility] Stop: 12/21/24 22:44 Last Admin: 12/17/24 08:01 Dose: 1 mg Ceftriaxone Sodium 1,000 mg/ (Sodium Chloride) 50 mls @ 100 mls/hr IV QDAY [facility] Stop: 12/23/24 23:58 Last Admin: 12/17/24 08:00 Dose: 100 mls/hr Sodium Chloride (Ns) 1,000 mls @ 20 mls/hr IV .Q24H ONE Stop: 12/18/24 00:37 Last Admin: 12/17/24 00:48 Dose: 20 mls/hr Magnesium Sulfate (Magnesium Sulfate Ivpb) 4 gm in 50 mls @ 12.5 mls/hr IV X1 ONE Stop: 12/17/24 12:55 Last Admin: 12/17/24 09:13 Dose: 12.5 mls/hr Labetalol HCl (Labetalol Inj 5 Mg/Ml Vial 20 Ml) 10 mg IVP Q2H PRN PRN Reason: SBP >180mmHg Stop: 01/15/25 22:44 Lorazepam (Lorazepam 2 Mg/Ml Vial) 0.5 mg IV Q2HR PRN PRN Reason: CIWA SCORE 8-13 Stop: 12/21/24 22:30 Last Admin: 12/17/24 05:43 Dose: 0.5 mg Lorazepam (Lorazepam 2 Mg/Ml Vial) 1 mg IV Q2HR PRN PRN Reason: CIWA SCORE 14-19 Stop: 12/21/24 22:30 Lorazepam (Lorazepam 2 Mg/Ml Vial) 2 mg IV Q2HR PRN PRN Reason: CIWA SCORE 20-25 Stop: 12/21/24 22:30 Ondansetron HCl (Ondansetron Inj 2 Mg/Ml Inj 2 Ml) 4 mg IV Q6H PRN; Protocol PRN Reason: NAUSEA OR VOMITING Stop: 01/15/25 22:24 Pantoprazole Sodium (Pantoprazole Inj 40 Mg Vial) 40 mg IVP QDAY KATIE Stop: 01/16/25 08:59 Last Admin: 12/17/24 08:02 Dose: 40 mg Thiamine HCl (Thiamine 100 Mg Tablet) 100 mg PO BID KATIE Stop: 12/22/24 08:59 Last Admin: 12/17/24 08:02 Dose: 100 mg Discontinued Medications Folic Acid (Folic Acid Inj 1 Mg/0.2 Ml) 1 mg IVP X1 ONE Stop: 12/16/24 21:05 Last Admin: 12/16/24 21:38 Dose: 1 mg Sodium Chloride (Ns) 1,000 mls @ 999 mls/hr IV .Q1H1M ONE Stop: 12/16/24 22:04 Last Infusion: 12/16/24 22:19 Dose: Infused Sodium Chloride (Ns) 1,000 mls @ 57 mls/hr IV .[id number] ONE Stop: 12/17/24 16:03 Last Admin: 12/17/24 00:50 Dose: Not Given Dextrose (D5w) 400 mls @ 200 mls/hr IV .Q2H KATIE Stop: 12/17/24 04:14 Last Admin: 12/17/24 03:06 Dose: 200 mls/hr Lorazepam (Lorazepam 2 Mg/Ml Vial) 2 mg IM X1 ONE Stop: 12/16/24 19:04 Last Admin: 12/16/24 19:13 Dose: 2 mg Lorazepam (Lorazepam 2 Mg/Ml Vial) 2 mg IVP X1 ONE Stop: 12/16/24 21:21 Last Admin: 12/16/24 21:38 Dose: 2 mg Potassium Chloride (Potassium Chloride 20 Meq Tabcr) 40 meq PO X1 ONE Stop: 12/17/24 07:31 Last Admin: 12/17/24 07:57 Dose: 40 meq Potassium Phos/Sodium Phos (Naph,[facility] 1 Packet (1.5 Gm)) 1 packet PO X1 ONE Stop: 12/17/24 07:31 Last Admin: 12/17/24 07:57 Dose: 1 packet Thiamine HCl (Thiamine Inj 100 Mg/Ml Vial 2 Ml) 100 mg IVP X1 ONE Stop: 12/16/24 21:05 Last Admin: 12/16/24 21:38 Dose: 100 mg Thiamine HCl (Thiamine Inj 100 Mg/Ml Vial 2 Ml) 100 mg IM STAT STA Stop: 12/16/24 22:32 Last Admin: 12/16/24 22:49 Dose: Not Given Assessment & Plan Plan A 59-year-old female with past medical history of hypertension, depression, alcohol abuse disorder was brought to the ED by her sister with chief complaints of sweating, paleness and confusion, admitted for hyponatremia and alcohol withdrawal # Hypoosmolar hyponatremia, resolving # Hypochloremia, resolving Ddx: Diuretic vs poor oral intake vs alcohol abuse vs multifactorial -Patient was brought to the hospital with complaints of confusion and sweating. -Denies involuntary movements, loss of consciousness, nausea, vomitings -Patient had history of hypertension for which patient is taking valsartan- hydrochlorothiazide combination -On 12/16/2024, Na 119, S. osm 242> 3/,Na 124, S. osm 249 -TSH is within normal limits Plan -5 mEq of sodium is corrected in the last 12 to 14 hours -Recommended fluid restriction to 1500 mL -No need of further saline infusions, if sodium obtained by > 6 mEq in 24 hours, recommended DNS infusions -Ordered urinary sodium -Monitor sodium levels -Thiazide diuretic is withheld -Continue [facility] protocol # Hypokalemia, hypophosphatemia -As of 12/17/2024, potassium is 2.9 and phosphorus is 1.9 -Likely due to poor oral intake in the setting of alcohol abuse Plan -40 mEq of oral potassium and Neutra-Phos is given -4 grams of magnesium is given -Continue to monitor electrolytes and replete accordingly #History of hypertension -History of hypertension, on metoprolol and valsartan-hydrochlorothiazide -Blood pressures found to be stable during this hospital stay -Discontinue hydrochlorothiazide and add medications as needed #History of alcohol use disorder #Alcohol withdrawal syndrome #Alcohol-related hepatitis #Alcohol-related cirrhosis rule out #History of lower GI bleed Rest of the medical conditions to be treated as per primary team Thank you for allowing us to participate in the care of patient Patient plan of care was discussed with the attending physician, Dr. Shalonda Gaspar, PGY1 Attending Provider Attestation/Addendum Patient seen and examined with resident physician Dr. Amado. Note reviewed, agree with findings and recommendations. Patient seems to be confused--Probably related to alcohol withdrawal. CIWA protocol initiated Sodium seems to be appropriately corrected. No need for further fluids. Continue with fluid restriction. Thank you Emerald for allowing me to participate in the care of Ms. Morrissey
[2024-12-17 11:17] LABS: Sodium 123 mMol/L (136-145)
[2024-12-17] MEDS: chlordiazePOXIDE HCl 25 MG CAPSULE 50 MG PO (13:05)
[2024-12-17] MEDS: LORazepam 2 MG/ML VIAL IVP (14:10)
[2024-12-17 14:28] LABS: Alanine Aminotransferase 76 U/L (10-49); Albumin, Serum 4.1 gm/dL (3.5-5.0); Albumin/Globulin Ratio 1.5 (1.2-2.2); Alkaline Phosphatase 162 U/L (46-116); Anion Gap 9 (7-16); Aspartate Amino Transferase 221 U/L (0-34); BUN/Creatinine Ratio 14 Ratio (12-20); Bilirubin,Total 3.1 mg/dL (0.3-1.2); Blood Urea Nitrogen 10 mg/dL (9-23); Calcium 9.1 mg/dL (8.3-10.6); Calcium (Corrected) 9.1 mg/dL (8.5-10.1); Carbon Dioxide 26.1 mMol/L (20.0-31.0); Chloride 90 mMol/L (98-107); Creatinine (Component) 0.7 mg/dL (0.6-1.3); Estimated Creatinine Clearance 65.6 mL/min (>60); Globulin 2.8 gm/dL (2.3-3.5); Glucose 184 mg/dL (74-106); Magnesium 1.5 mg/dL (1.6-2.6); Osmolality,Calculated 255 (275-295); Phosphorous 1.5 mg/dL (2.4-5.1); Potassium 3.4 mMol/L (3.4-5.1); Sodium 125 mMol/L (136-145); Total Protein 6.9 gm/dL (5.7-8.2); eGFR > 60 See Note
[2024-12-17] MEDS: SODIUM CHLORIDE 0.9% IVP ×2 (15:57→23:58)
[2024-12-17] MEDS: PHENOBARBITAL 130 MG IVP ×2 (15:57→23:58)
--- NOTE | 2024-12-17 16:28 | ESPR_ITS ---
<Statement entered by Chloé Johnson MD - 12/18/24 11:58> Patient is a 59-year-old female with past medical history significant for hypertension, alcohol use disorder presented to the ED with nausea and vomiting admitted for alcohol withdrawal syndrome and severe hyponatremia. Patient was started on IV fluids initially and CIWA protocol. However, later this afternoon, patient was reaching CIWA scores of 20+, and required phenobarbital. Will order phenobarbital 130 mg IV Q8 for total of 24 hours and hold Librium for now. Will continue to monitor sodium checks Q4, and resume or hold fluids as needed. Patient seen and examined at bedside. Patient denies any hallucinations either visual or auditory. Patient does have tremors and is sweating a lot. I discussed with and supervised the procurement intern physician who took care of this patient. I personally saw and examined the patient and discussed the assessment and plan with the entire medicine team, including my attending Dr. Aguila, I agree with most of the assessment and plan as documented below Chloé Johnson M.D. PGY-2 Disclaimer: Despite multiple revisions, due to the dictation software being used, the document bellow may not be free of grammatical errors including phonetic/typographic errors. However, this does not deter from our commitment to providing health care in the patient's best interest in mind. Documentation for date of: 12/17/24 Subjective Subjective Interval history: No overnight events. Patient seen and examined at bedside. Patient CIWA waxing waning. Patient denied fevers, chills, shortness of breath, chest pain, hallucinations. However, patient endorsed nausea, anxiety, tremors. Phenobarbital and CIWA protocol. Fluid restriction for hyponatremia. Exam Vital Signs Temp Pulse Resp BP Pulse Ox O2 Del Method 97.7 F 82 16 114/72 97 Room Air 12/17/24 08:00 12/17/24 16:09 12/17/24 16:09 12/17/24 08:00 12/17/24 08:00 12/17/24 08:00 Narrative Exam PE: Gen: Well-developed and well-nourished. Anxious. HEENT: NCAT, PERRLA, EOMI, MMM, anicteric conjunctivae. CVS: normal S1 and S2. RRR. No M/R/G. Resp: CTA B/L. No rhonchi, rales, crackles or wheezing. Abd: soft, non-tender, non-distended. MSK: Good ROM in BUE & BLE. No edema or rash. Neuro: CN II-XII grossly intact. Strength 5/5 in BUE & BLE. Alert and oriented x1. Tremors. Objective Labs 12/18/24 05:05 12/18/24 12:18 Labs: Laboratory Results - last 24 hr 12/16/24 12/16/24 12/16/24 19:08 19:58 22:58 WBC 8.6 RBC 3.30 L Hgb 11.7 L Hct 31.4 L MCV 95 MCH 35.5 H MCHC 37.3 H RDW Std Deviation 42.7 Plt Count 60 L Neut % (Auto) 88 H Lymph % (Auto) 6 L [place] % (Auto) 5 Eos % (Auto) 1 Baso % (Auto) 0 Neut # (Auto) 7.6 Lymph # (Auto) 0.5 L [place] # (Auto) 0.4 Eos # (Auto) 0.1 Baso # (Auto) 0.0 Immature Gran # (Auto) 0.03 H Absolute Nucleated RBC 0.00 Immature Gran % 0 Nucleated RBC % 0 PT 12.0 INR 1.1 APTT 31.4 Sodium 119 L* 122 L Potassium 3.5 Chloride 80 L Carbon Dioxide 29.8 Anion Gap 9 BUN 17 Creatinine 0.8 Estim Creat Clear Calc 57.6 L eGFR > 60 BUN/Creatinine Ratio 21 H Glucose 123 H Calculated Osmolality 242 L Calcium 10.1 Corrected Calcium 10.1 Phosphorus Magnesium 1.7 Total Bilirubin 4.2 H AST 217 H ALT 71 H Alkaline Phosphatase 182 H Troponin I 0.023 B-Natriuretic Peptide 38 Total Protein 8.1 Albumin 4.8 Globulin 3.3 Albumin/Globulin Ratio 1.5 Triglycerides Cholesterol LDL Cholesterol, Calc HDL Cholesterol Cholesterol/HDL Ratio TSH Ur Collection Type Clean Catch Urine Color Yellow Urine Clarity Turbid A Urine pH 8.0 H Ur Specific [place] 1.026 Urine Protein 1+ A Urine Glucose (UA) Negative Urine Ketones Trace Urine Blood Negative Urine Nitrite Negative Urine Bilirubin Negative Urine Urobilinogen (Auto) OVER Ur Leukocyte Esterase Negative Urine RBC 6 H Urine WBC 3 Ur Squamous Epith Cells < 1 Urine Bacteria Rare Urine Opiates Screen Negative Urine Fentanyl Screen Negative Ur Barbiturates Screen Negative U Amphetamin/Meth Scrn Negative U Benzodiazepines Scrn Negative U Cocaine Metab Screen Negative U Marijuana (THC) Screen Negative Ethyl Alcohol < 3.0 Hepatitis A IgM Ab Hep Bs Antigen Hep B Core IgM Ab Hepatitis C Antibody Misc Test Result Platelets confirmed 12/17/24 12/17/24 12/17/24 01:16 05:05 07:18 WBC 6.0 RBC 2.75 L Hgb 9.8 L Hct 26.5 L MCV 96 MCH 35.6 H MCHC 37.0 RDW Std Deviation 43.2 Plt Count 51 L Neut % (Auto) 83 H Lymph % (Auto) 7 L [place] % (Auto) 6 Eos % (Auto) 4 Baso % (Auto) 0 Neut # (Auto) 5.0 Lymph # (Auto) 0.4 L [place] # (Auto) 0.3 Eos # (Auto) 0.2 Baso # (Auto) 0.0 Immature Gran # (Auto) 0.02 H Absolute Nucleated RBC 0.00 Immature Gran % 0 Nucleated RBC % 0 PT 12.4 H INR 1.1 APTT Sodium 124 L 124 L 124 L Potassium 2.9 L D Chloride 87 L Carbon Dioxide 27.4 Anion Gap 10 BUN 13 Creatinine 0.6 Estim Creat Clear Calc 76.5 eGFR > 60 BUN/Creatinine Ratio 22 H Glucose 103 Calculated Osmolality 249 L Calcium 9.3 Corrected Calcium 9.3 Phosphorus 1.9 L Magnesium 1.6 Total Bilirubin 3.3 H D AST 209 H ALT 62 H Alkaline Phosphatase 153 H D Troponin I B-Natriuretic Peptide Total Protein 6.7 Albumin 4.2 D Globulin 2.5 Albumin/Globulin Ratio 1.7 Triglycerides 73 Cholesterol 238 H LDL Cholesterol, Calc 83 HDL Cholesterol 140 H Cholesterol/HDL Ratio 1.7 L TSH 2.54 Ur Collection Type Urine Color Urine Clarity Urine pH Ur Specific [place] Urine Protein Urine Glucose (UA) Urine Ketones Urine Blood Urine Nitrite Urine Bilirubin Urine Urobilinogen (Auto) Ur Leukocyte Esterase Urine RBC Urine WBC Ur Squamous Epith Cells Urine Bacteria Urine Opiates Screen Urine Fentanyl Screen Ur Barbiturates Screen U Amphetamin/Meth Scrn U Benzodiazepines Scrn U Cocaine Metab Screen U Marijuana (THC) Screen Ethyl Alcohol Hepatitis A IgM Ab Non Reactive Hep Bs Antigen Non Reactive Hep B Core IgM Ab Non Reactive Hepatitis C Antibody Non Reactive Misc Test Result Platelets confirmed 12/17/24 12/17/24 10:30 13:35 WBC RBC Hgb Hct MCV MCH MCHC RDW Std Deviation Plt Count Neut % (Auto) Lymph % (Auto) [place] % (Auto) Eos % (Auto) Baso % (Auto) Neut # (Auto) Lymph # (Auto) [place] # (Auto) Eos # (Auto) Baso # (Auto) Immature Gran # (Auto) Absolute Nucleated RBC Immature Gran % Nucleated RBC % PT INR APTT Sodium 123 L 125 L Potassium 3.4 D Chloride 90 L Carbon Dioxide 26.1 Anion Gap 9 BUN 10 Creatinine 0.7 Estim Creat Clear Calc 65.6 eGFR > 60 BUN/Creatinine Ratio 14 Glucose 184 H D Calculated Osmolality 255 L Calcium 9.1 Corrected Calcium 9.1 Phosphorus 1.5 L Magnesium 1.5 L Total Bilirubin 3.1 H AST 221 H ALT 76 H Alkaline Phosphatase 162 H Troponin I B-Natriuretic Peptide Total Protein 6.9 Albumin 4.1 Globulin 2.8 Albumin/Globulin Ratio 1.5 Triglycerides Cholesterol LDL Cholesterol, Calc HDL Cholesterol Cholesterol/HDL Ratio TSH Ur Collection Type Urine Color Urine Clarity Urine pH Ur Specific [place] Urine Protein Urine Glucose (UA) Urine Ketones Urine Blood Urine Nitrite Urine Bilirubin Urine Urobilinogen (Auto) Ur Leukocyte Esterase Urine RBC Urine WBC Ur Squamous Epith Cells Urine Bacteria Urine Opiates Screen Urine Fentanyl Screen Ur Barbiturates Screen U Amphetamin/Meth Scrn U Benzodiazepines Scrn U Cocaine Metab Screen U Marijuana (THC) Screen Ethyl Alcohol Hepatitis A IgM Ab Hep Bs Antigen Hep B Core IgM Ab Hepatitis C Antibody Misc Test Result Quality Measures Quality Measures VTE prophylaxis Assessment & Plan Assessment Current Active Medications: Generic Name Dose Route Start Last Admin Trade Name Freq PRN Reason Stop Dose Admin Acetaminophen 650 mg 12/16/24 22:25 Acetaminophen 325 Mg Tablet PO 01/15/25 22:24 Q8H PRN Fever >101.5 Phenobarbital Sodium 130 mg/ 0 mg 12/17/24 23:00 Sodium Chloride 12 ml IVP 12/18/24 16:00 Q8H KATIE Folic Acid 1 mg 12/16/24 22:45 12/17/24 08:01 Folic Acid 1 Mg Tablet PO 12/21/24 22:44 1 mg BID KATIE Administration Sodium Chloride 1,000 mls @ 20 mls/hr 12/17/24 00:38 12/17/24 00:48 Ns IV 12/18/24 00:37 20 mls/hr .Q24H ONE Administration Labetalol HCl 10 mg 12/16/24 22:35 Labetalol Inj 5 Mg/Ml Vial 20 Ml IVP 01/15/25 22:44 Q2H PRN SBP >180mmHg Lorazepam 0.5 mg 12/16/24 22:31 12/17/24 13:16 Lorazepam 2 Mg/Ml Vial IV 12/21/24 22:30 0.5 mg Q2HR PRN Administration CIWA SCORE 8-13 Lorazepam 1 mg 12/16/24 22:31 Lorazepam 2 Mg/Ml Vial IV 12/21/24 22:30 Q2HR PRN CIWA SCORE 14-19 Lorazepam 2 mg 12/16/24 22:31 Lorazepam 2 Mg/Ml Vial IV 12/21/24 22:30 Q2HR PRN CIWA SCORE 20-25 Ondansetron HCl 4 mg 12/16/24 22:25 Ondansetron Inj 2 Mg/Ml Inj 2 Ml IV 01/15/25 22:24 Q6H PRN NAUSEA OR VOMITING Protocol Pantoprazole Sodium 40 mg 12/17/24 09:00 12/17/24 08:02 Pantoprazole Inj 40 Mg Vial IVP 01/16/25 08:59 40 mg QDAY KATIE Administration Thiamine HCl 100 mg 12/17/24 09:00 12/17/24 08:02 Thiamine 100 Mg Tablet PO 12/22/24 08:59 100 mg BID KATIE Administration Plan 59-year-old female patient with past medical history of hypertension, alcohol use disorder presented to the ED with her sister after she started to experience nausea and vomiting associated with chills and tremors. Patient reported that for the past 45 days she started to binge drink wine after she retired. She reported that she has been drinking on daily basis for many years before. Patient was admitted for treatment of severe asymptomatic hyponatremia and alcohol withdrawal syndrome. #Severe asymptomatic hyponatremia DDx : most likely potomania versus medication side effect versus questionable alcohol-related cirrhosis Patient recently has been binge drinking for the past 45 days, she reported that she is taking blood pressure medication losartan/hydrochlorothiazide. Patient denied any seizure activities, denied any history of fall Serum sodium on presentation 119 mEq, rapidly increased to 124 with slow IV fluids. IV fluids held. -Nephrology consultation to Dr. Liz was ordered -Admit patient to telemetry -Neurocheck every 4 hours -Fluid restriction 1500 cc -Strict in and out -Sodium check every 3 hours -Urine sodium level random #History of alcohol use disorder #Alcohol withdrawal syndrome #Alcohol-related hepatitis #Alcohol-related cirrhosis rule out Patient has long history of chronic alcohol use disorder, presented today with jitteriness, shakiness, nausea and vomiting. Denied any seizures or visual hallucination. Last drink was this morning, serum alcohol level was normal, U tox was negative On evaluation today noticed to have elevated AST to ALT more than 2, T bilirubin 4.2, elevated alk phos, PT and INR within normal limits Platelets of 60, no previous imaging. [place] discrimination function score is 4.2 which indicate good prognosis. Abdominal ultrasound unremarkable. Acute hepatitis panel unremarkable. -Neurochecks every 4 hours -CIWA protocol lorazepam based -Phenobarbital 130 mg IV every 8 hour x 1 day -Start the patient on thiamine and folic acid daily -Daily CMP, coag panel, CBC -Refer to social media marketing manager #History of lower GI bleed Patient reported that she believes that her hemorrhoids blood because of her vomiting. She denied any previous episode of hematochezia or hematemesis. Patient denied any melena before or at this time. Because the patient has acute with possible chronic liver injury secondary to her alcoholism we suspect the patient may have esophageal varices -GI consultation -Daily CBC to monitor hemoglobin -Avoid blood thinners at this time #History of hypertension -Hold home medications -labetalol 10 mg IV every 2 hours as needed for SBP more than 180 mmHg FEN: Regular diet, fluid restriction DVT ppx: SCD GI ppx: Protonix IV lines: PIV Code status: Full code Plan of care discussed with senior resident Dr. Johnson PGY?[address] Aguila. Juan Pablo Jo MD PGY?1 Attending Provider Attestation/Addendum Vicente, Lynda Aguila, DO, attest that I was physically present for the hernandez portions of the service and evaluated the patient with the resident and I reviewed and discussed the case with the resident and agree with the resident's findings and plans of care as documented above Patient seen and evaluated this AM. She remains confused and tremulous. Sister, Trudi, at bedside and states that the patient is visiting from [place]. She has always been a heavy drinker, but the alcohol consumption had increased following her recent jail. Patient reports drinking 1.5 bottles of wine daily, but sister believes that the patient may be consuming more. Patient has been to rehab in the past. Patient remained agitated throughout the day and climbing out of bed despite ativan and librium. Will hold librium at this time and start on phenobarbital. Will continue to monitor for alcohol withdrawals as per protocol. Patient reports some BRBPR and epigastric discomfort. Will consult GI and monitor H/H due to concern for GIB.
[2024-12-17 17:39] LABS: Sodium 128 mMol/L (136-145)
[2024-12-17] MEDS: LORazepam 2 MG/ML VIAL 1 MG IV ×3 (19:15→23:49)
[2024-12-17 19:21] LABS: Sodium 129 mMol/L (136-145)
--- NOTE | 2024-12-17 22:25 | PC.NURSE ---
PT TRANSFERRED FROM MED/SURG FLOOR TO ROOM 268. PT AWAKE, ORIENTED TO HOSPITAL (COULDNT GIVE NAME OR CITY) MONTH AND YEAR. +TREMORS.
--- NOTE | 2024-12-17 22:26 | PD.IMCONS ---
HPI Data of Consult Requesting Physician: Emerald Vincent MD Primary Care Provider: Physician No Primary/Family Consult Narrative Reason for consult: nausea vomiting , pain abdomen, excessive alcohol consumption drinking History of present illness: 51-year-old female came to the emergency room with nausea vomiting and excessive drinking and no clear evidence of hematemesis Although on admission she had a hemoglobin hematocrit of 11.7 and 31.4 which is dropped down to 9.8 and 26.5 Hemoglobin hematocrit 11.7 and 30.4 which went down to 9.8 and 26.5 Abdominal ultrasound shows that the globe is not visualized common bile duct is 5 mm and no space-occupying lesions in the liver cc:: cc: Emerald Vincent MD Review of Systems Review of Systems Systems Reviewed: All systems reviewed, normal except as documented Past Medical History Surgical History OTHER SURGICAL HX: Essential hypertension CVA EtOH abuse Meds Home Medications and Allergies Home Medications ?Medication ?Instructions ?Recorded ?Confirmed ?Type escitalopram oxalate 10 mg tablet 20 mg PO QDAY 12/17/24 12/17/24 History metoprolol succinate 100 mg 100 mg PO QDAY 12/17/24 12/17/24 History tablet,extended release 24 hr omeprazole 20 mg capsule,delayed 20 mg PO QDAY 12/17/24 12/17/24 History release valsartan 160 1 tab PO QDAY 12/17/24 12/17/24 History mg-hydrochlorothiazide 25 mg tablet Allergies Allergy/AdvReac Type Severity Reaction Status Date / Time No Known Allergies Allergy Verified 12/16/24 18:35 Exam Vital Signs Temp Pulse Resp BP Pulse Ox O2 Del Method 97.3 F 106 H 20 130/78 94 L Room Air 12/17/24 20:00 12/17/24 20:00 12/17/24 20:00 12/17/24 20:00 12/17/24 20:00 12/17/24 20:00 Constitutional Comments: Chronically ill-appearing Routine Respiratory Exam Comments: Normal to auscultation Routine Abdominal Exam Comments: Midepigastric tenderness Results Labs 12/17/24 05:05 12/17/24 19:02 Labs: Short CBC 12/17/24 Range/Units 05:05 WBC 6.0 (3.6-11.0) Thou/mm3 Hgb 9.8 L (12.0-16.0) g/dL Hct 26.5 L (36.0-46.0) % Plt Count 51 L (140-440) Thou/mm3 BMP 12/16/24 12/17/24 12/17/24 22:58 01:16 05:05 Sodium 122 L 124 L 124 L Potassium 2.9 L D Chloride 87 L Carbon Dioxide 27.4 BUN 13 Creatinine 0.6 Glucose 103 Calcium 9.3 12/17/24 12/17/24 12/17/24 07:18 10:30 13:35 Sodium 124 L 123 L 125 L Potassium 3.4 D Chloride 90 L Carbon Dioxide 26.1 BUN 10 Creatinine 0.7 Glucose 184 H D Calcium 9.1 12/17/24 12/17/24 16:38 19:02 Sodium 128 L 129 L Potassium Chloride Carbon Dioxide BUN Creatinine Glucose Calcium Liver Function 12/17/24 12/17/24 Range/Units 05:05 13:35 Total Bilirubin 3.3 H D 3.1 H (0.3-1.2) mg/dL AST 209 H 221 H (0-34) U/L ALT 62 H 76 H (10-49) U/L Alkaline Phosphatase 153 H D 162 H (46-116) U/L Albumin 4.2 D 4.1 (3.5-5.0) gm/dL Assessment and Plan Additional Assessment & Plan Additional Plan: # Nausea vomiting # Drop in hemoglobin hematocrit most likely occult GI bleeding # Excessive alcohol consumption # Chronic liver disease secondary to the total bilirubin 3.1 AST ALT 226 and 76 and alk phos 162 Plan Serial CBC IV Protonix Schedule fiberoptic upper endoscopy with possible therapeutic intervention under intravenous moderate sedation Watch for alcohol withdrawal Other medical problems include # Essential hypertension # CVA # EtOH abuse Thank you very much for the opportunity to participate in care of this
--- NOTE | 2024-12-17 23:40 | PC.NURSE ---
DR GLASGOW AND BUSHRA AND BEDSIDE. PT ATTEMPTING TO GET OOB, RESTLESS, ANXIOUS. PER MD, WOULD NOT LIKE RESTRAINTS PLACED ON PT. OK TO GIVE ATIVAN 1MG EARLY PER CIWA OF 17 AT THIS TIME.
--- NOTE | 2024-12-17 23:57 | PC.NURSE ---
LEW W/ADITI, PHARMACIST REGARDING PHENOBARBITAL ORDER NOT SCANNING. RN STATED THAT I DONT HAVE ACCESS TO NS 12 ML VIAL WHICH ISNT ALLOWING ME TO SAVE THE ORDER. ADITI ATTEMPTED TO PLACE A NEW ORDER BUT CONTINUES TO HAVE THE SAME ISSUE. [employer] SERUM INSPECTOR AWARE. VERIFIED DOSE AND ADMINISTRATION WITH HER AND TIEN Kothari RN.
[2024-12-18] VITALS (15 sets, daily range): BP systolic 109–160; BP diastolic 65–94; PULSE 85–132; RESP 12–100; TEMP 36.1–37.2; O2SAT 92–100; BMI 26.6
--- NOTE | 2024-12-18 04:42 | PC.NURSE ---
[facility] down[facility] occurred on 12/18/24 from 0200 to 0320.
[2024-12-18 05:49] LABS: Basophils % (Auto) 0 % (0-2.5); Eosinophils # (Auto) 0.2 Thou/mm3 (0.0-0.5); Eosinophils % (Auto) 3 % (0-10); Hematocrit 26.5 % (36.0-46.0); Hemoglobin 10.1 g/dL (12.0-16.0); Immature Granulocytes % (Auto) 0 % (0-0); Immature Granulocytes Auto 0.01 Thou/mm3 (0.00-0.00); Lymphocytes # (Auto) 0.3 Thou/mm3 (1.0-4.8); Lymphocytes % (Auto) 6 % (10-50); Mean Corpuscular HGB Conc 38.1 g/dl (31.0-37.0); Mean Corpuscular Hemoglobin 36.5 pg (25.0-35.0); Mean Corpuscular Volume 96 fL (80-100); Monocytes # (Auto) 0.4 Thou/mm3 (0.0-0.8); Monocytes % (Auto) 8 % (0-12); Neutrophils # (Auto) 3.9 Thou/mm3 (1.8-7.7); Neutrophils % (Auto) 81 % (37-80); Nucleated Red Blood Cell % 0 /100 WBC (0); RDW Standard Deviation 43.3 fL (36.4-46.3); Red Blood Count 2.77 Miln/mm3 (4.00-5.20); White Blood Count 4.8 Thou/mm3 (3.6-11.0)
[2024-12-18 05:55] LABS: Platelet Count 64 Thou/mm3 (140-440)
[2024-12-18 06:07] LABS: INR 1.1 (0.9-1.3); Prothrombin Time 11.7 Seconds (9.0-12.2)
[2024-12-18 06:24] LABS: Alanine Aminotransferase 79 U/L (10-49); Albumin, Serum 4.2 gm/dL (3.5-5.0); Albumin/Globulin Ratio 1.6 (1.2-2.2); Alkaline Phosphatase 155 U/L (46-116); Anion Gap 7 (7-16); Aspartate Amino Transferase 185 U/L (0-34); BUN/Creatinine Ratio 18 Ratio (12-20); Bilirubin,Total 2.8 mg/dL (0.3-1.2); Blood Urea Nitrogen 11 mg/dL (9-23); Calcium 9.3 mg/dL (8.3-10.6); Calcium (Corrected) 9.3 mg/dL (8.5-10.1); Carbon Dioxide 27.5 mMol/L (20.0-31.0); Chloride 96 mMol/L (98-107); Creatinine (Component) 0.6 mg/dL (0.6-1.3); Estimated Creatinine Clearance 76.9 mL/min (>60); Globulin 2.7 gm/dL (2.3-3.5); Glucose 118 mg/dL (74-106); Magnesium 2.4 mg/dL (1.6-2.6); Osmolality,Calculated 261 (275-295); Phosphorous 2.4 mg/dL (2.4-5.1); Potassium 3.1 mMol/L (3.4-5.1); Sodium 130 mMol/L (136-145); Total Protein 6.9 gm/dL (5.7-8.2); eGFR > 60 See Note
[2024-12-18 06:28] LABS: Slide Review Platelets confirmed
[2024-12-18] MEDS: FOLIC ACID 1 MG TABLET PO ×2 (09:32→21:03)
[2024-12-18] MEDS: THIAMINE 100 MG TABLET PO ×2 (09:32→21:03)
[2024-12-18] MEDS: PANTOPRAZOLE INJ 40 MG VIAL IVP (09:34)
[2024-12-18] MEDS: POTASSIUM CHLORIDE 20 mEq TABCR 40 MEQ PO (09:40)
--- NOTE | 2024-12-18 11:29 | ESPR_ITS ---
<Statement entered by Chloé Johnson MD - 12/18/24 13:59> Patient is a 59-year-old female with past medical history significant for hypertension, alcohol use disorder presented to the ED with nausea and vomiting admitted for alcohol withdrawal syndrome and severe hyponatremia. Patient's Na level is currently 131 and will continue with Na checks. Patient will be on IV Phenobarbital today, and will transition to PO Librium tomorrow. Patient has also been NPO since midnight for EGD planned with GI later today. Patient seen and examined at bedside. Patient denies any complaints at this time. I discussed with and supervised the global marketing intern physician who took care of this patient. I personally saw and examined the patient and discussed the assessment and plan with the entire medicine team, including my attending Dr. Aguila, I agree with most of the assessment and plan as documented below Chloé Johnson M.D. PGY-2 Disclaimer: Despite multiple revisions, due to the dictation software being used, the document bellow may not be free of grammatical errors including phonetic/typographic errors. However, this does not deter from our commitment to providing health care in the patient's best interest in mind. Documentation for date of: 12/18/24 Subjective Subjective Interval history: No overnight events. Patient seen and examined at bedside. Patient resting comfortably, endorses feeling better . Remains mildly tremulous. Denies hallucinations. Denies nausea or vomiting. Patient scheduled for EGD. Patient will finish phenobarbital today, start Librium scheduled tomorrow. Continue CIWA protocol Exam Vital Signs Temp Pulse Resp BP Pulse Ox O2 Del Method O2 Flow Rate 97.0 F 88 18 109/65 100 Nasal Cannula 2 12/18/24 08:00 12/18/24 08:00 12/18/24 08:00 12/18/24 08:00 12/18/24 08:00 12/18/24 08:00 12/18/24 08:00 Narrative Exam PE: Gen: Well-developed and well-nourished. HEENT: NCAT, PERRLA, EOMI, MMM, anicteric conjunctivae. CVS: normal S1 and S2. RRR. No M/R/G. Resp: CTA B/L. No rhonchi, rales, crackles or wheezing. Abd: soft, non-tender, non-distended. MSK: Good ROM in BUE & BLE. No edema or rash. Neuro: CN II-XII grossly intact. Strength 5/5 in BUE & BLE. Alert and oriented x1. Tremors. Objective Labs 12/18/24 05:05 12/18/24 15:09 Labs: Laboratory Results - last 24 hr 12/17/24 12/17/24 12/17/24 13:35 16:38 19:02 WBC RBC Hgb Hct MCV MCH MCHC RDW Std Deviation Plt Count Neut % (Auto) Lymph % (Auto) [place] % (Auto) Eos % (Auto) Baso % (Auto) Neut # (Auto) Lymph # (Auto) [place] # (Auto) Eos # (Auto) Baso # (Auto) Immature Gran # (Auto) Absolute Nucleated RBC Immature Gran % Nucleated RBC % PT INR Sodium 125 L 128 L 129 L Potassium 3.4 D Chloride 90 L Carbon Dioxide 26.1 Anion Gap 9 BUN 10 Creatinine 0.7 Estim Creat Clear Calc 65.6 eGFR > 60 BUN/Creatinine Ratio 14 Glucose 184 H D Calculated Osmolality 255 L Calcium 9.1 Corrected Calcium 9.1 Phosphorus 1.5 L Magnesium 1.5 L Total Bilirubin 3.1 H AST 221 H ALT 76 H Alkaline Phosphatase 162 H Total Protein 6.9 Albumin 4.1 Globulin 2.8 Albumin/Globulin Ratio 1.5 Misc Test Result 12/18/24 05:05 WBC 4.8 RBC 2.77 L Hgb 10.1 L Hct 26.5 L MCV 96 MCH 36.5 H MCHC 38.1 H RDW Std Deviation 43.3 Plt Count 64 L D Neut % (Auto) 81 H Lymph % (Auto) 6 L [place] % (Auto) 8 Eos % (Auto) 3 Baso % (Auto) 0 Neut # (Auto) 3.9 Lymph # (Auto) 0.3 L [place] # (Auto) 0.4 Eos # (Auto) 0.2 Baso # (Auto) 0.0 Immature Gran # (Auto) 0.01 H Absolute Nucleated RBC 0.00 Immature Gran % 0 Nucleated RBC % 0 PT 11.7 INR 1.1 Sodium 130 L Potassium 3.1 L Chloride 96 L Carbon Dioxide 27.5 Anion Gap 7 BUN 11 Creatinine 0.6 Estim Creat Clear Calc 76.9 eGFR > 60 BUN/Creatinine Ratio 18 Glucose 118 H D Calculated Osmolality 261 L Calcium 9.3 Corrected Calcium 9.3 Phosphorus 2.4 Magnesium 2.4 Total Bilirubin 2.8 H AST 185 H ALT 79 H Alkaline Phosphatase 155 H Total Protein 6.9 Albumin 4.2 Globulin 2.7 Albumin/Globulin Ratio 1.6 Misc Test Result Platelets confirmed Quality Measures Quality Measures VTE prophylaxis Assessment & Plan Assessment Current Active Medications: Generic Name Dose Route Start Last Admin Trade Name Freq PRN Reason Stop Dose Admin Acetaminophen 650 mg 12/16/24 22:25 Acetaminophen 325 Mg Tablet PO 01/15/25 22:24 Q8H PRN Fever >101.5 Chlordiazepoxide HCl 50 mg 12/19/24 06:00 Chlordiazepoxide Hcl 25 Mg Capsule PO 12/24/24 05:59 TID KATIE Phenobarbital Sodium 130 mg/ 0 mg 12/17/24 23:00 12/17/24 23:58 Sodium Chloride 12 ml IVP 12/18/24 16:00 130 mg Q8HR KATIE Administration Folic Acid 1 mg 12/16/24 22:45 12/18/24 09:32 Folic Acid 1 Mg Tablet PO 12/21/24 22:44 1 mg BID KATIE Administration Labetalol HCl 10 mg 12/16/24 22:35 Labetalol Inj 5 Mg/Ml Vial 20 Ml IVP 01/15/25 22:44 Q2H PRN SBP >180mmHg Lorazepam 0.5 mg 12/16/24 22:31 12/17/24 13:16 Lorazepam 2 Mg/Ml Vial IV 12/21/24 22:30 0.5 mg Q2HR PRN Administration CIWA SCORE 8-13 Lorazepam 1 mg 12/16/24 22:31 12/17/24 23:49 Lorazepam 2 Mg/Ml Vial IV 12/21/24 22:30 1 mg Q2HR PRN Administration CIWA SCORE 14-19 Lorazepam 2 mg 12/16/24 22:31 Lorazepam 2 Mg/Ml Vial IV 12/21/24 22:30 Q2HR PRN CIWA SCORE 20-25 Ondansetron HCl 4 mg 12/16/24 22:25 Ondansetron Inj 2 Mg/Ml Inj 2 Ml IV 01/15/25 22:24 Q6H PRN NAUSEA OR VOMITING Protocol Pantoprazole Sodium 40 mg 12/17/24 09:00 12/18/24 09:34 Pantoprazole Inj 40 Mg Vial IVP 01/16/25 08:59 40 mg QDAY KATIE Administration Thiamine HCl 100 mg 12/17/24 09:00 12/18/24 09:32 Thiamine 100 Mg Tablet PO 12/22/24 08:59 100 mg BID KATIE Administration Plan 59-year-old female patient with past medical history of hypertension, alcohol use disorder presented to the ED with her sister after she started to experience nausea and vomiting associated with chills and tremors. Patient reported that for the past 45 days she started to binge drink wine after she retired. She reported that she has been drinking on daily basis for many years before. Patient was admitted for treatment of severe asymptomatic hyponatremia and alcohol withdrawal syndrome. #Severe asymptomatic hyponatremia, improving DDx : most likely potomania versus medication side effect versus questionable alcohol-related cirrhosis Patient recently has been binge drinking for the past 45 days, she reported that she is taking blood pressure medication losartan/hydrochlorothiazide. Patient denied any seizure activities, denied any history of fall Serum sodium on presentation 119 mEq, rapidly increased to 124 with slow IV fluids. IV fluids held. -Nephrology consultation to Dr. Liz was ordered -Admit patient to telemetry -Neurocheck every 4 hours -Fluid restriction 1500 cc -Strict in and out -Sodium check every 3 hours -Urine sodium level random #History of alcohol use disorder #Alcohol withdrawal syndrome #Alcohol-related hepatitis #Alcohol-related cirrhosis rule out Patient has long history of chronic alcohol use disorder, presented today with jitteriness, shakiness, nausea and vomiting. Denied any seizures or visual hallucination. Last drink was this morning, serum alcohol level was normal, U tox was negative On evaluation today noticed to have elevated AST to ALT more than 2, T bilirubin 4.2, elevated alk phos, PT and INR within normal limits Platelets of 60, no previous imaging. Madrey discrimination function score is 4.2 which indicate good prognosis. Abdominal ultrasound unremarkable. Acute hepatitis panel unremarkable. -Neurochecks every 4 hours -[facility] protocol lorazepam based -Phenobarbital 130 mg IV every 8 hour x 1 day -Librium 50 mg p.o. 3 times daily starting tomorrow -Thiamine and folic acid daily -Daily CMP, coag panel, CBC -Refer to nursing home social worker #History of lower GI bleed Patient reported that she believes that her hemorrhoids blood because of her vomiting. She denied any previous episode of hematochezia or hematemesis. Patient denied any melena before or at this time. Because the patient has acute with possible chronic liver injury secondary to her alcoholism we suspect the patient may have esophageal varices -GI consultation, recommendations appreciated -Scheduled for EGD, follow-up -Daily CBC to monitor hemoglobin -Avoid blood thinners at this time #History of hypertension -Hold home medications -labetalol 10 mg IV every 2 hours as needed for SBP more than 180 mmHg FEN: Regular diet, fluid restriction DVT ppx: SCD GI ppx: Protonix IV lines: PIV Code status: Full code Plan of care discussed with senior resident Dr. Johnson PGY?[address] Aguila. Juan Pablo Jo MD PGY?1 Attending Provider Attestation/Addendum Vicente, Lynda Aguila, DO, attest that I was physically present for the hernandez portions of the service and evaluated the patient with the resident and I reviewed and discussed the case with the resident and agree with the resident's findings and plans of care as documented above Patient seen and evaluated this AM. She states she is feeling well. Sister is at bedside. Patient states she is doing better, denies any tactile, auditory or visual hallucinations. Patient has visible tremors. CIWA score of 4. Continue with phenobarbital at this time. Pending EGD this evening.
--- NOTE | 2024-12-18 11:43 | PD.RESPRO ---
Documentation for date of: 12/18/24 Subjective Subjective Interval history: Ms. Fitzpatrick is a 59-year-old female with past medical history of hypertension, depression, alcohol abuse disorder was brought to the ED by her sister with chief complaints of sweating, paleness and confusion. Patient's sister stated that patient is having alcohol use disorder for more than 10 years from now and since then she had multiple episodes of withdrawal and tried rehabilitation multiple times without success. Patient was supposedly retired 1 month ago since which her alcohol intake increased with low food intake. On 12/15/2024, patient was brought by her sister from [place] where she lives as the patient is continuing to drink alcohol without any food intake and became so weak to [place]. On 12/16/2024, patient had alcohol intake in the morning and in the afternoon noted severe sweating and palor for which patient was initially taken to urgent care and she was referred later to our emergency department. Denies loss of consciousness, involuntary movements, nausea, vomiting, diarrheal episodes ED Course: -Initial vitals were blood pressure 129/74 mmHg, pulse rate 84 bpm, respiratory rate 16/min, temperature 98.3 ?F, SpO2 97% with room air -Labs are significant for Hb 11.7, platelets 60, sodium 119, potassium 3.5, chloride 80, bicarb 29.8, BUN 17, creatinine 0.8, total bilirubin 4.2, AST 217, ALT 71, ALP 182. Urine toxicology tested negative for drug screen -In the ED, patient was given benzodiazepines, thiamine -Patient was admitted for hyponatremia and alcohol withdrawal 12/18/2024 Patient was seen and examined by the bedside Still appears to be mildly confused but mentation improved from yesterday Vitals are stable. Sodium levels continue to improve to 130 Potassium is 3.1. 40 mEq of oral potassium is given Continue to monitor sodium levels. Exam Vital Signs Temp Pulse Resp BP Pulse Ox O2 Del Method O2 Flow Rate 97.0 F 88 18 109/65 100 Nasal Cannula 2 12/18/24 08:00 12/18/24 08:00 12/18/24 08:00 12/18/24 08:00 12/18/24 08:00 12/18/24 08:00 12/18/24 08:00 Narrative Exam General: Awake. Patient seems to be mildly confused HEENT: Normocephalic, atraumatic, mucous membranes moist. 9 over heart: Regular rate and rhythm, no murmurs. Lungs: Clear to auscultation with no wheezing or crackles. Abdomen: Soft, nondistended, nontender, positive bowel sounds. ?No guarding or rebound tenderness. Neurologic: mildly confused, no gross neurological deficit, and patient able to move all 4 extremities. Extremities: No edema. Skin: No rash or ecchymoses. Objective Labs 12/19/24 04:23 12/19/24 07:48 Labs: Laboratory Results - last 24 hr 12/17/24 12/17/24 12/17/24 13:35 16:38 19:02 WBC RBC Hgb Hct MCV MCH MCHC RDW Std Deviation Plt Count Neut % (Auto) Lymph % (Auto) [place] % (Auto) Eos % (Auto) Baso % (Auto) Neut # (Auto) Lymph # (Auto) [place] # (Auto) Eos # (Auto) Baso # (Auto) Immature Gran # (Auto) Absolute Nucleated RBC Immature Gran % Nucleated RBC % PT INR Sodium 125 L 128 L 129 L Potassium 3.4 D Chloride 90 L Carbon Dioxide 26.1 Anion Gap 9 BUN 10 Creatinine 0.7 Estim Creat Clear Calc 65.6 eGFR > 60 BUN/Creatinine Ratio 14 Glucose 184 H D Calculated Osmolality 255 L Calcium 9.1 Corrected Calcium 9.1 Phosphorus 1.5 L Magnesium 1.5 L Total Bilirubin 3.1 H AST 221 H ALT 76 H Alkaline Phosphatase 162 H Total Protein 6.9 Albumin 4.1 Globulin 2.8 Albumin/Globulin Ratio 1.5 Misc Test Result 12/18/24 05:05 WBC 4.8 RBC 2.77 L Hgb 10.1 L Hct 26.5 L MCV 96 MCH 36.5 H MCHC 38.1 H RDW Std Deviation 43.3 Plt Count 64 L D Neut % (Auto) 81 H Lymph % (Auto) 6 L [place] % (Auto) 8 Eos % (Auto) 3 Baso % (Auto) 0 Neut # (Auto) 3.9 Lymph # (Auto) 0.3 L [place] # (Auto) 0.4 Eos # (Auto) 0.2 Baso # (Auto) 0.0 Immature Gran # (Auto) 0.01 H Absolute Nucleated RBC 0.00 Immature Gran % 0 Nucleated RBC % 0 PT 11.7 INR 1.1 Sodium 130 L Potassium 3.1 L Chloride 96 L Carbon Dioxide 27.5 Anion Gap 7 BUN 11 Creatinine 0.6 Estim Creat Clear Calc 76.9 eGFR > 60 BUN/Creatinine Ratio 18 Glucose 118 H D Calculated Osmolality 261 L Calcium 9.3 Corrected Calcium 9.3 Phosphorus 2.4 Magnesium 2.4 Total Bilirubin 2.8 H AST 185 H ALT 79 H Alkaline Phosphatase 155 H Total Protein 6.9 Albumin 4.2 Globulin 2.7 Albumin/Globulin Ratio 1.6 Misc Test Result Platelets confirmed Quality Measures Quality Measures VTE prophylaxis Assessment & Plan Assessment Current Active Medications: Generic Name Dose Route Start Last Admin Trade Name Freq PRN Reason Stop Dose Admin Acetaminophen 650 mg 12/16/24 22:25 Acetaminophen 325 Mg Tablet PO 01/15/25 22:24 Q8H PRN Fever >101.5 Chlordiazepoxide HCl 50 mg 12/19/24 06:00 Chlordiazepoxide Hcl 25 Mg Capsule PO 12/24/24 05:59 TID KATIE Phenobarbital Sodium 130 mg/ 0 mg 12/17/24 23:00 12/17/24 23:58 Sodium Chloride 12 ml IVP 12/18/24 16:00 130 mg Q8HR KATIE Administration Folic Acid 1 mg 12/16/24 22:45 12/18/24 09:32 Folic Acid 1 Mg Tablet PO 12/21/24 22:44 1 mg BID KATIE Administration Labetalol HCl 10 mg 12/16/24 22:35 Labetalol Inj 5 Mg/Ml Vial 20 Ml IVP 01/15/25 22:44 Q2H PRN SBP >180mmHg Lorazepam 0.5 mg 12/16/24 22:31 12/17/24 13:16 Lorazepam 2 Mg/Ml Vial IV 12/21/24 22:30 0.5 mg Q2HR PRN Administration CIWA SCORE 8-13 Lorazepam 1 mg 12/16/24 22:31 12/17/24 23:49 Lorazepam 2 Mg/Ml Vial IV 12/21/24 22:30 1 mg Q2HR PRN Administration CIWA SCORE 14-19 Lorazepam 2 mg 12/16/24 22:31 Lorazepam 2 Mg/Ml Vial IV 12/21/24 22:30 Q2HR PRN CIWA SCORE 20-25 Ondansetron HCl 4 mg 12/16/24 22:25 Ondansetron Inj 2 Mg/Ml Inj 2 Ml IV 01/15/25 22:24 Q6H PRN NAUSEA OR VOMITING Protocol Pantoprazole Sodium 40 mg 12/17/24 09:00 12/18/24 09:34 Pantoprazole Inj 40 Mg Vial IVP 01/16/25 08:59 40 mg QDAY KATIE Administration Thiamine HCl 100 mg 12/17/24 09:00 12/18/24 09:32 Thiamine 100 Mg Tablet PO 12/22/24 08:59 100 mg BID KATIE Administration Plan A 59-year-old female with past medical history of hypertension, depression, alcohol abuse disorder was brought to the ED by her sister with chief complaints of sweating, paleness and confusion, admitted for hyponatremia and alcohol withdrawal # Hypoosmolar hyponatremia, resolving # Hypochloremia, resolved Ddx: Diuretic vs poor oral intake vs alcohol abuse vs multifactorial -Patient was brought to the hospital with complaints of confusion and sweating. -Denies involuntary movements, loss of consciousness, nausea, vomitings -Patient had history of hypertension for which patient is taking valsartan-hydrochlorothiazide combination -On 12/16/2024, Na 119, S. osm 242> 3/4,Na 124, S. osm 249 > 3/5, sodium 130, osm 261. -TSH is within normal limits Plan -Recommended fluid restriction to 1500 mL -No need of further saline infusions -Monitor sodium levels -Thiazide diuretic is withheld -Continue CIWA protocol # Hypokalemia, hypophosphatemia, resolving -As of 12/18/2024, potassium is 3.1 and phosphorus is 2.4 -Likely due to poor oral intake in the setting of alcohol abuse Plan -40 mEq of oral potassium and Neutra-Phos is given -Continue to monitor electrolytes and replete accordingly #History of hypertension -History of hypertension, on metoprolol and valsartan-hydrochlorothiazide -Blood pressures found to be stable during this hospital stay -Discontinue hydrochlorothiazide and add medications as needed #History of alcohol use disorder #Alcohol withdrawal syndrome #Alcohol-related hepatitis #Alcohol-related cirrhosis rule out #History of lower GI bleed Rest of the medical conditions to be treated as per primary team Thank you for allowing us to participate in the care of patient Patient plan of care was discussed with the attending physician, Dr. Shalonda Gaspar, PGY1 Attending Provider Attestation/Addendum Patient seen and examined with resident physician Dr. Amado. Note reviewed, agree with findings and recommendations. Sodium seems to be stable at 130
--- NOTE | 2024-12-18 12:11 | PC.SS ---
Patient is alert/oriented today. She was able to verify demographics. Patient's sister was present during discussion. Patient agreeable with me speaking in front of her sister. Patient admitted for alcohol withdrawal. Patient states she's from out of area and was here visiting. Patient states she recently was let go from her job in Oct. Since then she has been in a severe depression. She was on a low dose medication for this. She states she turned towards alcohol. Patient confirmed she has been to alcohol rehab 8 years ago in [place]. She stayed 2 weeks. Patient states she has positive support from family. Patient is not eligible for [employer]PE Medi-desiree. Patient will need to apply in her county. She is aware. She has not even applied for unemployment yet. Patient has seven sisters and they will be assisting her with all these tasks. Patient has participated in AA classess and will continue in her county. SS advised to connect with her county for any in patient or out patient alcohol rehab programs. Patient verbalized she wanted her sister, Alysa Cline, as her alt medical decision maker. PCP: Dr. Noah Chaidez through [employer]. D/c plans: D/c with family and return home in [place], [place] where she resides alone.
[2024-12-18] MEDS: NAPH,KPH MBDB 1 PACKET (1.5 GM) PO (12:26)
[2024-12-18 12:59] LABS: Sodium 131 mMol/L (136-145)
[2024-12-18] MEDS: PHENobarbital INJ 130 MG/1 ML VIAL IVP (13:31)
--- NOTE | 2024-12-18 14:37 | PC.SS ---
rounding note: Patient to have EGD today. Consult for GI
[2024-12-18 15:56] LABS: Sodium 132 mMol/L (136-145)
--- NOTE | 2024-12-18 20:05 | SUR.PHASEI ---
pt received to [facility]. arouses with stimulation but drifts to sleep. denies pain and nausea. vss. breathing even and unlabored. report from nurse cy.
[2024-12-18 20:06] LABS: Sodium 132 mMol/L (136-145)
--- NOTE | 2024-12-18 20:33 | PC.NURSE ---
PT BACK FROM ENDO. AWAKE. NO DISTRESS NOTED. TRANSFERED BACK BED WITHOUT DIFFICULTY.
--- NOTE | 2024-12-18 20:45 | SUR.PHASEI ---
report called to jovanny on tele. pt awake and alert. denies pain and nausea. vss. breathing even and unlabored. tolerated po ice chips.
--- NOTE | 2024-12-18 22:50 | PC.NURSE ---
DR. PATEL MADE AWARE OF PT STATING THAT SHE IS HAVING TROUBLE FALLING ASLEEP . CIWA 6, DOESN'T QUALIFY FOR PRN ATIVAN AT THIS TIME. LIBRIUM TO BE STARTED 12/19/24 0600. STATES THAT HE NEEDS TO THINK ABOUT THIS
[2024-12-18] MEDS: chlordiazePOXIDE HCl 25 MG CAPSULE PO (23:03)
[2024-12-19] VITALS (9 sets, daily range): BP systolic 107–146; BP diastolic 73–97; PULSE 79–106; RESP 16–96; TEMP 36.4–36.7; O2SAT 97–99; BMI 27.2
[2024-12-19 01:00] LABS: Sodium 132 mMol/L (136-145)
[2024-12-19 05:14] LABS: Basophils % (Auto) 1 % (0-2.5); Eosinophils # (Auto) 0.3 Thou/mm3 (0.0-0.5); Eosinophils % (Auto) 7 % (0-10); Hematocrit 26.7 % (36.0-46.0); Hemoglobin 9.7 g/dL (12.0-16.0); Immature Granulocytes % (Auto) 0 % (0-0); Immature Granulocytes Auto 0.02 Thou/mm3 (0.00-0.00); Lymphocytes # (Auto) 0.6 Thou/mm3 (1.0-4.8); Lymphocytes % (Auto) 14 % (10-50); Mean Corpuscular HGB Conc 36.3 g/dl (31.0-37.0); Mean Corpuscular Hemoglobin 35.9 pg (25.0-35.0); Mean Corpuscular Volume 99 fL (80-100); Monocytes # (Auto) 0.5 Thou/mm3 (0.0-0.8); Monocytes % (Auto) 12 % (0-12); Neutrophils # (Auto) 3.1 Thou/mm3 (1.8-7.7); Neutrophils % (Auto) 67 % (37-80); Nucleated Red Blood Cell % 0 /100 WBC (0); RDW Standard Deviation 45.2 fL (36.4-46.3); White Blood Count 4.6 Thou/mm3 (3.6-11.0)
[2024-12-19 05:19] LABS: Platelet Count 78 Thou/mm3 (140-440)
[2024-12-19 05:20] LABS: Slide Review Platelets confirmed
[2024-12-19 05:33] LABS: INR 1.1 (0.9-1.3)
[2024-12-19 05:40] LABS: Alanine Aminotransferase 82 U/L (10-49); Albumin/Globulin Ratio 1.5 (1.2-2.2); Alkaline Phosphatase 148 U/L (46-116); Anion Gap 7 (7-16); Aspartate Amino Transferase 158 U/L (0-34); BUN/Creatinine Ratio 28 Ratio (12-20); Bilirubin,Total 2.4 mg/dL (0.3-1.2); Blood Urea Nitrogen 14 mg/dL (9-23); Calcium 9.1 mg/dL (8.3-10.6); Calcium (Corrected) 9.1 mg/dL (8.5-10.1); Carbon Dioxide 23.7 mMol/L (20.0-31.0); Chloride 100 mMol/L (98-107); Creatinine (Component) 0.5 mg/dL (0.6-1.3); Estimated Creatinine Clearance 92.1 mL/min (>60); Globulin 2.6 gm/dL (2.3-3.5); Glucose 100 mg/dL (74-106); Magnesium 2.1 mg/dL (1.6-2.6); Osmolality,Calculated 263 (275-295); Phosphorous 2.2 mg/dL (2.4-5.1); Sodium 131 mMol/L (136-145); Total Protein 6.6 gm/dL (5.7-8.2); eGFR > 60 See Note
--- NOTE | 2024-12-19 06:05 | PC.NURSE ---
DR. TOMLINSON MADE AWARE THAT PT HAS BEEN SLEEPING THROUGHOUT THE NIGHT AFTER LIBRIUM GIVEN AND STILL REMAINS ASLEEP. WILL AWAKEN AT TIMES WITH VERBAL STIMULATION. PER MD, HOLD LIBRIUM THIS AM DOSE.
[2024-12-19 08:24] LABS: Sodium 130 mMol/L (136-145)
--- NOTE | 2024-12-19 08:39 | PD.RESPRO ---
Documentation for date of: 12/19/24 Subjective Subjective Interval history: Ms. Fitzpatrick is a 59-year-old female with past medical history of hypertension, depression, alcohol abuse disorder was brought to the ED by her sister with chief complaints of sweating, paleness and confusion. Patient's sister stated that patient is having alcohol use disorder for more than 10 years from now and since then she had multiple episodes of withdrawal and tried rehabilitation multiple times without success. Patient was supposedly retired 1 month ago since which her alcohol intake increased with low food intake. On 12/15/2024, patient was brought by her sister from [place] where she lives as the patient is continuing to drink alcohol without any food intake and became so weak to [place]. On 12/16/2024, patient had alcohol intake in the morning and in the afternoon noted severe sweating and palor for which patient was initially taken to urgent care and she was referred later to our emergency department. Denies loss of consciousness, involuntary movements, nausea, vomiting, diarrheal episodes ED Course: -Initial vitals were blood pressure 129/74 mmHg, pulse rate 84 bpm, respiratory rate 16/min, temperature 98.3 ?F, SpO2 97% with room air -Labs are significant for Hb 11.7, platelets 60, sodium 119, potassium 3.5, chloride 80, bicarb 29.8, BUN 17, creatinine 0.8, total bilirubin 4.2, AST 217, ALT 71, ALP 182. Urine toxicology tested negative for drug screen -In the ED, patient was given benzodiazepines, thiamine -Patient was admitted for hyponatremia and alcohol withdrawal 12/18/2024 Patient was seen and examined by the bedside Still appears to be mildly confused but mentation improved from yesterday Vitals are stable. Sodium levels continue to improve to 130 Potassium is 3.1. 40 mEq of oral potassium is given Continue to monitor sodium levels. 12/19/2024 Patient was seen and examined at the bedside Patient's mental status continues to improve and appears oriented to time and place Vitals are stable. Labs showed sodium of 130 which could be likely due to cirrhosis EGD done yesterday showed grade 1 esophageal varices Exam Vital Signs Temp Pulse Resp BP Pulse Ox O2 Del Method O2 Flow Rate 97.7 F 79 18 146/73 H 98 Room Air 2 12/19/24 04:00 12/19/24 06:55 12/19/24 06:55 12/19/24 04:00 12/19/24 04:00 12/19/24 04:00 12/18/24 20:49 Narrative Exam General: Awake. HEENT: Normocephalic, atraumatic, mucous membranes moist. Heart: Regular rate and rhythm, no murmurs. Lungs: Clear to auscultation with no wheezing or crackles. Abdomen: Soft, nondistended, nontender, positive bowel sounds. ?No guarding or rebound tenderness. Neurologic: Alert and oriented x3, no gross neurological deficit, and patient able to move all 4 extremities. Extremities: No edema. Skin: No rash or ecchymoses. Objective Labs 12/19/24 04:23 12/19/24 07:48 Labs: Laboratory Results - last 24 hr 12/18/24 12/18/24 12/18/24 12:18 15:09 19:36 WBC RBC Hgb Hct MCV MCH MCHC RDW Std Deviation Plt Count Neut % (Auto) Lymph % (Auto) [place] % (Auto) Eos % (Auto) Baso % (Auto) Neut # (Auto) Lymph # (Auto) [place] # (Auto) Eos # (Auto) Baso # (Auto) Immature Gran # (Auto) Absolute Nucleated RBC Immature Gran % Nucleated RBC % PT INR Sodium 131 L 132 L 132 L Potassium Chloride Carbon Dioxide Anion Gap BUN Creatinine Estim Creat Clear Calc eGFR BUN/Creatinine Ratio Glucose Calculated Osmolality Calcium Corrected Calcium Phosphorus Magnesium Total Bilirubin AST ALT Alkaline Phosphatase Total Protein Albumin Globulin [facility]in[facility] Result 12/19/24 12/19/24 12/19/24 00:10 04:10 04:23 WBC 4.6 RBC 2.70 L Hgb 9.7 L Hct 26.7 L MCV 99 MCH 35.9 H MCHC 36.3 RDW Std Deviation 45.2 Plt Count 78 L D Neut % (Auto) 67 Lymph % (Auto) 14 [place] % (Auto) 12 Eos % (Auto) 7 Baso % (Auto) 1 Neut # (Auto) 3.1 Lymph # (Auto) 0.6 L [place] # (Auto) 0.5 Eos # (Auto) 0.3 Baso # (Auto) 0.0 Immature Gran # (Auto) 0.02 H Absolute Nucleated RBC 0.00 Immature Gran % 0 Nucleated RBC % 0 PT 12.0 INR 1.1 Sodium 132 L Cancelled 131 L Potassium 4.0 D Chloride 100 Carbon Dioxide 23.7 Anion Gap 7 BUN 14 Creatinine 0.5 L Estim Creat Clear Calc 92.1 eGFR > 60 BUN/Creatinine Ratio 28 H Glucose 100 Calculated Osmolality 263 L Calcium 9.1 Corrected Calcium 9.1 Phosphorus 2.2 L Magnesium 2.1 Total Bilirubin 2.4 H AST 158 H ALT 82 H Alkaline Phosphatase 148 H Total Protein 6.6 Albumin 4.0 Globulin 2.6 Albumin/Globulin Ratio 1.5 Misc Test Result Platelets confirmed 12/19/24 07:48 WBC RBC Hgb Hct MCV MCH MCHC RDW Std Deviation Plt Count Neut % (Auto) Lymph % (Auto) [place] % (Auto) Eos % (Auto) Baso % (Auto) Neut # (Auto) Lymph # (Auto) [place] # (Auto) Eos # (Auto) Baso # (Auto) Immature Gran # (Auto) Absolute Nucleated RBC Immature Gran % Nucleated RBC % PT INR Sodium 130 L Potassium Chloride Carbon Dioxide Anion Gap BUN Creatinine Estim Creat Clear Calc eGFR BUN/Creatinine Ratio Glucose Calculated Osmolality Calcium Corrected Calcium Phosphorus Magnesium Total Bilirubin AST ALT Alkaline Phosphatase Total Protein Albumin Globulin Albumin/Globulin Ratio Misc Test Result Quality Measures Quality Measures VTE prophylaxis Assessment & Plan Assessment Current Active Medications: Generic Name Dose Route Start Last Admin Trade Name Freq PRN Reason Stop Dose Admin Acetaminophen 650 mg 12/18/24 12:05 Acetaminophen 325 Mg Tablet PO 01/15/25 22:24 Q8H PRN Fever >100.5 Chlordiazepoxide HCl 25 mg 12/18/24 23:00 12/19/24 05:54 Chlordiazepoxide Hcl 25 Mg Capsule PO 12/23/24 22:59 Not Given Q8HR KATIE Folic Acid 1 mg 12/16/24 22:45 12/18/24 21:03 Folic Acid 1 Mg Tablet PO 12/21/24 22:44 1 mg BID KATIE Administration Labetalol HCl 10 mg 12/16/24 22:35 Labetalol Inj 5 Mg/Ml Vial 20 Ml IVP 01/15/25 22:44 Q2H PRN SBP >180mmHg Lorazepam 0.5 mg 12/16/24 22:31 12/17/24 13:16 Lorazepam 2 Mg/Ml Vial IV 12/21/24 22:30 0.5 mg Q2HR PRN Administration CIWA SCORE 8-13 Lorazepam 1 mg 12/16/24 22:31 12/17/24 23:49 Lorazepam 2 Mg/Ml Vial IV 12/21/24 22:30 1 mg Q2HR PRN Administration CIWA SCORE 14-19 Lorazepam 2 mg 12/16/24 22:31 Lorazepam 2 Mg/Ml Vial IV 12/21/24 22:30 Q2HR PRN CIWA SCORE 20-25 Ondansetron HCl 4 mg 12/16/24 22:25 Ondansetron Inj 2 Mg/Ml Inj 2 Ml IV 01/15/25 22:24 Q6H PRN NAUSEA OR VOMITING Protocol Pantoprazole Sodium 40 mg 12/17/24 09:00 12/18/24 09:34 Pantoprazole Inj 40 Mg Vial IVP 01/16/25 08:59 40 mg QDAY KATIE Administration Thiamine HCl 100 mg 12/17/24 09:00 12/18/24 21:03 Thiamine 100 Mg Tablet PO 12/22/24 08:59 100 mg BID KATIE Administration Plan A 59-year-old female with past medical history of hypertension, depression, alcohol abuse disorder was brought to the ED by her sister with chief complaints of sweating, paleness and confusion, admitted for hyponatremia and alcohol withdrawal # Hypoosmolar hyponatremia, resolving # Hypochloremia, resolved Ddx: Diuretic vs poor oral intake vs alcohol abuse, cirrhosis vs multifactorial -Patient was brought to the hospital with complaints of confusion and sweating. -Denies involuntary movements, loss of consciousness, nausea, vomitings -Patient had history of hypertension for which patient is taking valsartan-hydrochlorothiazide combination -On 12/16/2024, Na 119, S. osm 242> 3/4,Na 124, S. osm 249 > 3/5, sodium 130, osm 261 > 3/6, Na 130, osm 263 -TSH is within normal limits Plan -Recommended fluid restriction to 1500 mL -No need of further saline infusions -Monitor sodium levels -Thiazide diuretic is withheld -Continue CICO protocol # Hypokalemia, hypophosphatemia, resolved -As of 12/19/2024, potassium is 4 and phosphorus is 2.2 -Likely due to poor oral intake in the setting of alcohol abuse Plan -Continue to monitor electrolytes and replete accordingly #History of hypertension -History of hypertension, on metoprolol and valsartan-hydrochlorothiazide -Blood pressures found to be stable during this hospital stay -Discontinue hydrochlorothiazide and add medications as needed #History of alcohol use disorder #Alcohol withdrawal syndrome #Alcohol-related hepatitis #Alcohol-related cirrhosis rule out #History of lower GI bleed Rest of the medical conditions to be treated as per primary team Thank you for allowing us to participate in the care of patient Patient plan of care was discussed with the attending physician, Dr. Shalonda Gaspar, PGY1 Attending Provider Attestation/Addendum Patient seen and examined with resident physician Dr. Amado. Note reviewed, agree with findings and recommendations. Patient's sodium stabilized at 130. Continue with fluid restriction. Suspect she has cirrhosis of the liver from alcoholism. Varices noted.
[2024-12-19] MEDS: FOLIC ACID 1 MG TABLET PO ×2 (08:42→20:57)
[2024-12-19] MEDS: PANTOPRAZOLE INJ 40 MG VIAL IVP (08:42)
[2024-12-19] MEDS: THIAMINE 100 MG TABLET PO ×2 (08:42→20:57)
[2024-12-19] MEDS: chlordiazePOXIDE HCl 25 MG CAPSULE PO ×2 (13:55→20:59)
[2024-12-19] MEDS: SODIUM CHLORIDE 0.9% 1000 ML 1,000 ML 60 ML IV (15:01)
--- NOTE | 2024-12-19 15:42 | PC.SS ---
Rounding: Tapering Librium
--- NOTE | 2024-12-19 15:53 | ESPR_ITS ---
<Statement entered by Chloé Johnson MD - 12/20/24 17:07> Patient seen and examined at bedside. No acute overnight events reported. CIWA score today is a lot lower than previous days. Patient's symptoms are well- controlled with Librium taper. Patient denies any hallucinations, nausea/vomiting, abdominal pain. There was some concern for mottling in lower extremities, however patient states that no skin changes have been there for a long time. Will intervene with IV and fluids and encourage p.o. hydration given. Anticipate discharge within 24 hours. I discussed with and supervised the audit practice intern physician who took care of this patient. I personally saw and examined the patient and discussed the assessment and plan with the entire medicine team, including my attending , I agree with most of the assessment and plan as documented below Chloé Johnson M.D. PGY-2 Disclaimer: Despite multiple revisions, due to the dictation software being used, the document bellow may not be free of grammatical errors including phonetic/typographic errors. However, this does not deter from our commitment to providing health care in the patient's best interest in mind. Documentation for date of: 12/19/24 Subjective Subjective Interval history: No overnight events. Patient seen examined at bedside, resting comfortably. Denies fever, chills, nausea, vomiting, anxiety. Endorses only minimal tremors. Patient transitioned to Librium. Titrate down Librium. EGD showed grade 1 varices without bleeding, propranolol initiated. Maintenance fluids added. Exam Vital Signs Temp Pulse Resp BP Pulse Ox O2 Del Method O2 Flow Rate 97.8 F 97 20 138/81 H 99 Room Air 2 12/19/24 12:12/19/24 12:12/19/24 12:12/19/24 12:12/19/24 12:12/19/24 12:12/18/24 20:49 Narrative Exam PE: Gen: Well-developed and well-nourished. HEENT: NCAT, PERRLA, EOMI, MMM, anicteric conjunctivae. CVS: normal S1 and S2. RRR. No M/R/G. Resp: CTA B/L. No rhonchi, rales, crackles or wheezing. Abd: soft, non-tender, non-distended. MSK: Good ROM in BUE & BLE. No edema or rash. Neuro: CN II-XII grossly intact. Strength 5/5 in BUE & BLE. Alert and oriented x2. Mild tremors. Objective Labs 12/20/24 05:03 12/20/24 05:03 Labs: Laboratory Results - last 24 hr 12/18/24 12/18/24 12/19/24 15:09 19:36 00:10 WBC RBC Hgb Hct MCV MCH MCHC RDW Std Deviation Plt Count Neut % (Auto) Lymph % (Auto) [place] % (Auto) Eos % (Auto) Baso % (Auto) Neut # (Auto) Lymph # (Auto) [place] # (Auto) Eos # (Auto) Baso # (Auto) Immature Gran # (Auto) Absolute Nucleated RBC Immature Gran % Nucleated RBC % PT INR Sodium 132 L 132 L 132 L Potassium Chloride Carbon Dioxide Anion Gap BUN Creatinine Estim Creat Clear Calc eGFR BUN/Creatinine Ratio Glucose Calculated Osmolality Calcium Corrected Calcium Phosphorus Magnesium Total Bilirubin AST ALT Alkaline Phosphatase Total Protein Albumin Globulin Albumin/Globulin Ratio Misc Test Result 12/19/24 12/19/24 12/19/24 04:10 04:23 07:48 WBC 4.6 RBC 2.70 L Hgb 9.7 L Hct 26.7 L MCV 99 MCH 35.9 H MCHC 36.3 RDW Std Deviation 45.2 Plt Count 78 L D Neut % (Auto) 67 Lymph % (Auto) 14 [place] % (Auto) 12 Eos % (Auto) 7 Baso % (Auto) 1 Neut # (Auto) 3.1 Lymph # (Auto) 0.6 L [place] # (Auto) 0.5 Eos # (Auto) 0.3 Baso # (Auto) 0.0 Immature Gran # (Auto) 0.02 H Absolute Nucleated RBC 0.00 Immature Gran % 0 Nucleated RBC % 0 PT 12.0 INR 1.1 Sodium Cancelled 131 L 130 L Potassium 4.0 D Chloride 100 Carbon Dioxide 23.7 Anion Gap 7 BUN 14 Creatinine 0.5 L Estim Creat Clear Calc 92.1 eGFR > 60 BUN/Creatinine Ratio 28 H Glucose 100 Calculated Osmolality 263 L Calcium 9.1 Corrected Calcium 9.1 Phosphorus 2.2 L Magnesium 2.1 Total Bilirubin 2.4 H AST 158 H ALT 82 H Alkaline Phosphatase 148 H Total Protein 6.6 Albumin 4.0 Globulin 2.6 Albumin/Globulin Ratio 1.5 Misc Test Result Platelets confirmed Quality Measures Quality Measures VTE prophylaxis Assessment & Plan Assessment Current Active Medications: Generic Name Dose Route Start Last Admin Trade Name Freq PRN Reason Stop Dose Admin Acetaminophen 650 mg 12/18/24 12:05 Acetaminophen 325 Mg Tablet PO 01/15/25 22:24 Q8H PRN Fever >100.5 Chlordiazepoxide HCl 25 mg 12/19/24 14:00 12/19/24 13:55 Chlordiazepoxide Hcl 25 Mg Capsule PO 12/24/24 13:59 25 mg Q8HR KATIE Administration Folic Acid 1 mg 12/16/24 22:45 12/19/24 08:42 Folic Acid 1 Mg Tablet PO 12/21/24 22:44 1 mg BID KATIE Administration Sodium Chloride 1,000 mls @ 60 mls/hr 12/19/24 14:47 12/19/24 15:01 Ns IV 01/18/25 14:46 60 mls/hr .[id number] KATIE Administration Labetalol HCl 10 mg 12/19/24 12:01 Labetalol Inj 5 Mg/Ml Vial 20 Ml IVP 01/15/25 22:34 Q6HR PRN SBP >180mmHg Lorazepam 0.5 mg 12/16/24 22:31 12/17/24 13:16 Lorazepam 2 Mg/Ml Vial IV 12/21/24 22:30 0.5 mg Q2HR PRN Administration CIWA SCORE 8-13 Lorazepam 1 mg 12/16/24 22:31 12/17/24 23:49 Lorazepam 2 Mg/Ml Vial IV 12/21/24 22:30 1 mg Q2HR PRN Administration CIWA SCORE 14-19 Lorazepam 2 mg 12/16/24 22:31 Lorazepam 2 Mg/Ml Vial IV 12/21/24 22:30 Q2HR PRN CIWA SCORE 20-25 Ondansetron HCl 4 mg 12/16/24 22:25 Ondansetron Inj 2 Mg/Ml Inj 2 Ml IV 01/15/25 22:24 Q6H PRN NAUSEA OR VOMITING Protocol Pantoprazole Sodium 40 mg 12/17/24 09:00 12/19/24 08:42 Pantoprazole Inj 40 Mg Vial IVP 01/16/25 08:59 40 mg QDAY KATIE Administration Propranolol HCl 10 mg 12/19/24 21:00 Propranolol 10 Mg Tablet PO 01/18/25 20:59 BID KATIE Thiamine HCl 100 mg 12/17/24 09:00 12/19/24 08:42 Thiamine 100 Mg Tablet PO 12/22/24 08:59 100 mg BID KATIE Administration Plan 59-year-old female patient with past medical history of hypertension, alcohol use disorder presented to the ED with her sister after she started to experience nausea and vomiting associated with chills and tremors. Patient reported that for the past 45 days she started to binge drink wine after she retired. She reported that she has been drinking on daily basis for many years before. Patient was admitted for treatment of severe asymptomatic hyponatremia and alcohol withdrawal syndrome. #History of alcohol use disorder #Alcohol withdrawal syndrome #Alcohol-related hepatitis #Alcohol-related cirrhosis rule out Patient has long history of chronic alcohol use disorder, presented today with jitteriness, shakiness, nausea and vomiting. Denied any seizures or visual hallucination. Last drink was this morning, serum alcohol level was normal, U tox was negative On evaluation today noticed to have elevated AST to ALT more than 2, T bilirubin 4.2, elevated alk phos, PT and INR within normal limits Platelets 60, no previous imaging. Madrey discrimination function score is 4.2 which indicate good prognosis. Abdominal ultrasound unremarkable. Acute hepatitis panel unremarkable. Patient completed phenobarbital 130 mg IV every 8 hour x 1 day, transition to Librium. -Neurochecks every 4 hours -CIWA protocol lorazepam based -Librium 25 mg p.o. twice daily, will titrate down. -IVF: Normal saline at 60 mL/h -Propranolol 10 mg p.o. twice daily -Thiamine and folic acid daily -Daily CMP, coag panel, CBC -Refer to social psychologist #Severe asymptomatic hyponatremia, resolved DDx : most likely potomania versus medication side effect versus questionable alcohol-related cirrhosis Patient recently has been binge drinking for the past 45 days, she reported that she is taking blood pressure medication losartan/hydrochlorothiazide. Patient denied any seizure activities, denied any history of fall Serum sodium on presentation 119 mEq, rapidly increased to 124 with slow IV fluids. IV fluids held. Sodium remains stable at 131, patient remains asymptomatic. -Nephrology consultation to Dr. Liz was ordered -Admit patient to telemetry -Neurocheck every 4 hours -Fluid restriction 1500 cc -Strict in and out -IVF as above #History of lower GI bleed Patient reported that she believes that her hemorrhoids blood because of her vomiting. She denied any previous episode of hematochezia or hematemesis. Patient denied any melena before or at this time. Because the patient has acute with possible chronic liver injury secondary to her alcoholism we suspect the patient may have esophageal varices. EGD showed grade 1 varices without bleeding. Hemoglobin stable. -GI consultation, recommendations appreciated -Daily CBC to monitor hemoglobin -Avoid blood thinners at this time #History of hypertension -Hold home medications -labetalol 10 mg IV every 2 hours as needed for SBP more than 180 mmHg -Propranolol as above FEN: Regular diet, fluid restriction DVT ppx: SCD GI ppx: Protonix IV lines: PIV Code status: Full code Plan of care discussed with senior resident Dr. Johnson PGY?[address] Aguila. Juan Pablo Jo MD PGY?1 Attending Provider Attestation/Addendum Lynda Zhang, DO, attest that I was physically present for the hernandez portions of the service and evaluated the patient with the resident and I reviewed and discussed the case with the resident and agree with the resident's findings and plans of care as documented above Patient seen and evaluate this a.m. She continues to have mild tremors in her bilateral hands. However, patient is much calmer today. She denies any headache, anxiety, nausea, vomiting, tactile, auditory, visual hallucinations otherwise. CIWA score of 2. Will continue to taper Librium at this time. If patient remains stable in the a.m., anticipate discharge. Patient noted to have some bilateral lower extremity mottling, suspect that she may be hypovolemic. Will start on IV fluids and encourage PO hydration.
--- NOTE | 2024-12-19 17:45 | PC.NURSE ---
hand off from tineasha, pt comfortable in bed
--- NOTE | 2024-12-19 20:39 | PD.IMPROG ---
Documentation for date of: 12/19/24 Subjective Subjective Interval history: Patient evaluated downtrending hemoglobin at the moment to 9.7 and 26.7 Total bilirubin 2.4 AST ALT 168 and 82 and alk phos 148 Endoscopy yesterday showed 1 per esophageal varices and hemorrhagic gastritis Exam Vital Signs Temp Pulse Resp BP Pulse Ox O2 Del Method O2 Flow Rate 98.0 F 89 20 128/73 98 Room Air 2 12/19/24 16:00 12/19/24 16:00 12/19/24 16:00 12/19/24 16:00 12/19/24 16:00 12/19/24 16:00 12/18/24 20:49 Objective Labs 12/19/24 04:23 12/19/24 07:48 Labs: Laboratory Results - last 24 hr 12/19/24 12/19/24 12/19/24 00:10 04:10 04:23 WBC 4.6 RBC 2.70 L Hgb 9.7 L Hct 26.7 L MCV 99 MCH 35.9 H MCHC 36.3 RDW Std Deviation 45.2 Plt Count 78 L D Neut % (Auto) 67 Lymph % (Auto) 14 [place] % (Auto) 12 Eos % (Auto) 7 Baso % (Auto) 1 Neut # (Auto) 3.1 Lymph # (Auto) 0.6 L [place] # (Auto) 0.5 Eos # (Auto) 0.3 Baso # (Auto) 0.0 Immature Gran # (Auto) 0.02 H Absolute Nucleated RBC 0.00 Immature Gran % 0 Nucleated RBC % 0 PT 12.0 INR 1.1 Sodium 132 L Cancelled 131 L Potassium 4.0 D Chloride 100 Carbon Dioxide 23.7 Anion Gap 7 BUN 14 Creatinine 0.5 L Estim Creat Clear Calc 92.1 eGFR > 60 BUN/Creatinine Ratio 28 H Glucose 100 Calculated Osmolality 263 L Calcium 9.1 Corrected Calcium 9.1 Phosphorus 2.2 L Magnesium 2.1 Total Bilirubin 2.4 H AST 158 H ALT 82 H Alkaline Phosphatase 148 H Total Protein 6.6 Albumin 4.0 Globulin 2.6 Albumin/Globulin Ratio 1.5 Misc Test Result Platelets confirmed 12/19/24 07:48 WBC RBC Hgb Hct MCV MCH MCHC RDW Std Deviation Plt Count Neut % (Auto) Lymph % (Auto) [place] % (Auto) Eos % (Auto) Baso % (Auto) Neut # (Auto) Lymph # (Auto) [place] # (Auto) Eos # (Auto) Baso # (Auto) Immature Gran # (Auto) Absolute Nucleated RBC Immature Gran % Nucleated RBC % PT INR Sodium 130 L Potassium Chloride Carbon Dioxide Anion Gap BUN Creatinine Estim Creat Clear Calc eGFR BUN/Creatinine Ratio Glucose Calculated Osmolality Calcium Corrected Calcium Phosphorus Magnesium Total Bilirubin AST ALT Alkaline Phosphatase Total Protein Albumin Globulin Albumin/Globulin Ratio Misc Test Result Impressions Impression: 1+ esophageal varices not large enough for band ligation Hemorrhagic gastritis Recheck CBC in the morning If patient continues to drop hemoglobin hematocrit might consider colonoscopy prior to discharge Assessment & Plan A&P Narrative # Nausea vomiting # Drop in hemoglobin hematocrit most likely occult GI bleeding # Excessive alcohol consumption # Chronic liver disease secondary to the total bilirubin 3.1 AST ALT 226 and 76 and alk phos 162 Plan Serial CBC IV Protonix Schedule fiberoptic upper endoscopy with possible therapeutic intervention under intravenous moderate sedation Watch for alcohol withdrawal Other medical problems include # Essential hypertension # CVA # EtOH abuse Thank you very much for the opportunity to participate in care of this Time Spent With Patient Time: Total time spent is greater than 50% in coordination of care (as documented) at patient's floor/unit and/or counseling patient:
[2024-12-19] MEDS: PROPRANOLOL 10 MG TABLET PO (20:57)
[2024-12-20] VITALS: BP 125/75; PULSE 80; PULSE 84; RESP 12; TEMP 36.2; O2SAT 99
[2024-12-20 04:00] VITALS: BP 144/86; PULSE 77; PULSE 78; RESP 19; TEMP 36.1; O2SAT 98
[2024-12-20 05:18] LABS: Basophils % (Auto) 1 % (0-2.5); Eosinophils # (Auto) 0.4 Thou/mm3 (0.0-0.5); Eosinophils % (Auto) 9 % (0-10); Hematocrit 26.8 % (36.0-46.0); Hemoglobin 9.7 g/dL (12.0-16.0); Immature Granulocytes % (Auto) 1 % (0-0); Immature Granulocytes Auto 0.03 Thou/mm3 (0.00-0.00); Lymphocytes # (Auto) 0.5 Thou/mm3 (1.0-4.8); Lymphocytes % (Auto) 13 % (10-50); Mean Corpuscular HGB Conc 36.2 g/dl (31.0-37.0); Mean Corpuscular Hemoglobin 36.1 pg (25.0-35.0); Mean Corpuscular Volume 100 fL (80-100); Monocytes # (Auto) 0.7 Thou/mm3 (0.0-0.8); Monocytes % (Auto) 16 % (0-12); Neutrophils # (Auto) 2.5 Thou/mm3 (1.8-7.7); Neutrophils % (Auto) 61 % (37-80); Nucleated Red Blood Cell % 0 /100 WBC (0); Platelet Count 103 Thou/mm3 (140-440); RDW Standard Deviation 46.2 fL (36.4-46.3); Red Blood Count 2.69 Miln/mm3 (4.00-5.20); White Blood Count 4.1 Thou/mm3 (3.6-11.0)
[2024-12-20] MEDS: chlordiazePOXIDE HCl 25 MG CAPSULE PO (05:28)
[2024-12-20 05:59] VITALS: BMI 31.4
[2024-12-20 06:04] LABS: Alanine Aminotransferase 60 U/L (10-49); Albumin, Serum 3.9 gm/dL (3.5-5.0); Albumin/Globulin Ratio 1.5 (1.2-2.2); Alkaline Phosphatase 158 U/L (46-116); Anion Gap 8 (7-16); Aspartate Amino Transferase 115 U/L (0-34); BUN/Creatinine Ratio 20 Ratio (12-20); Bilirubin,Total 1.7 mg/dL (0.3-1.2); Blood Urea Nitrogen 10 mg/dL (9-23); Calcium (Corrected) 9.1 mg/dL (8.5-10.1); Carbon Dioxide 23.6 mMol/L (20.0-31.0); Chloride 102 mMol/L (98-107); Creatinine (Component) 0.5 mg/dL (0.6-1.3); Estimated Creatinine Clearance 100.3 mL/min (>60); Globulin 2.6 gm/dL (2.3-3.5); Glucose 117 mg/dL (74-106); Magnesium 1.8 mg/dL (1.6-2.6); Osmolality,Calculated 268 (275-295); Phosphorous 2.5 mg/dL (2.4-5.1); Potassium 3.7 mMol/L (3.4-5.1); Sodium 134 mMol/L (136-145); Total Protein 6.5 gm/dL (5.7-8.2); eGFR > 60 See Note
[2024-12-20 07:09] VITALS: PULSE 84; RESP 21; RESP 98
[2024-12-20 08:00] VITALS: BP 133/74; PULSE 81; PULSE 90; RESP 16; TEMP 36.6; O2SAT 100
--- NOTE | 2024-12-20 09:19 | PD.RESPRO ---
Documentation for date of: 12/20/24 Subjective Subjective Interval history: Ms. Fitzpatrick is a 59-year-old female with past medical history of hypertension, depression, alcohol abuse disorder was brought to the ED by her sister with chief complaints of sweating, paleness and confusion. Patient's sister stated that patient is having alcohol use disorder for more than 10 years from now and since then she had multiple episodes of withdrawal and tried rehabilitation multiple times without success. Patient was supposedly retired 1 month ago since which her alcohol intake increased with low food intake. On 12/15/2024, patient was brought by her sister from [place] where she lives as the patient is continuing to drink alcohol without any food intake and became so weak to [place]. On 12/16/2024, patient had alcohol intake in the morning and in the afternoon noted severe sweating and palor for which patient was initially taken to urgent care and she was referred later to our emergency department. Denies loss of consciousness, involuntary movements, nausea, vomiting, diarrheal episodes ED Course: -Initial vitals were blood pressure 129/74 mmHg, pulse rate 84 bpm, respiratory rate 16/min, temperature 98.3 ?F, SpO2 97% with room air -Labs are significant for Hb 11.7, platelets 60, sodium 119, potassium 3.5, chloride 80, bicarb 29.8, BUN 17, creatinine 0.8, total bilirubin 4.2, AST 217, ALT 71, ALP 182. Urine toxicology tested negative for drug screen -In the ED, patient was given benzodiazepines, thiamine -Patient was admitted for hyponatremia and alcohol withdrawal 12/18/2024 Patient was seen and examined by the bedside Still appears to be mildly confused but mentation improved from yesterday Vitals are stable. Sodium levels continue to improve to 130 Potassium is 3.1. 40 mEq of oral potassium is given Continue to monitor sodium levels. 12/19/2024 Patient was seen and examined at the bedside Patient's mental status continues to improve and appears oriented to time and place Vitals are stable. Labs showed sodium of 130 which could be likely due to cirrhosis EGD done yesterday showed grade 1 esophageal varices 12/20/2024 Patient was seen and examined at bedside No acute overnight events. Reported that she is not able to have good sleep last night Requested for some sleep aid in the morning Vitals are stable. Labs showed sodium 134, BUN 10, creatinine 0.5, total bilirubin 1.7, AST 115, ALT 60 Exam Vital Signs Temp Pulse Resp BP Pulse Ox O2 Del Method O2 Flow Rate 97.0 F 84 21 H 144/86 H 98 Room Air 2 12/20/24 04:00 12/20/24 07:09 12/20/24 07:09 12/20/24 04:00 12/20/24 04:00 12/20/24 04:00 12/18/24 20:49 Narrative Exam General: Awake. HEENT: Normocephalic, atraumatic, mucous membranes moist. Heart: Regular rate and rhythm, no murmurs. Lungs: Clear to auscultation with no wheezing or crackles. Abdomen: Soft, nondistended, nontender, positive bowel sounds. ?No guarding or rebound tenderness. Neurologic: Alert and oriented x3, no gross neurological deficit, and patient able to move all 4 extremities. Extremities: No edema. Skin: No rash or ecchymoses. Objective Labs 12/20/24 05:03 12/20/24 05:03 Labs: Laboratory Results - last 24 hr 12/20/24 05:03 WBC 4.1 RBC 2.69 L Hgb 9.7 L Hct 26.8 L MCV 100 MCH 36.1 H MCHC 36.2 RDW Std Deviation 46.2 Plt Count 103 L D Neut % (Auto) 61 Lymph % (Auto) 13 [place] % (Auto) 16 H Eos % (Auto) 9 Baso % (Auto) 1 Neut # (Auto) 2.5 Lymph # (Auto) 0.5 L [place] # (Auto) 0.7 Eos # (Auto) 0.4 Baso # (Auto) 0.0 Immature Gran # (Auto) 0.03 H Absolute Nucleated RBC 0.00 Immature Gran % 1 H Nucleated RBC % 0 Sodium 134 L Potassium 3.7 Chloride 102 Carbon Dioxide 23.6 Anion Gap 8 BUN 10 Creatinine 0.5 L Estim Creat Clear Calc 100.3 eGFR > 60 BUN/Creatinine Ratio 20 Glucose 117 H Calculated Osmolality 268 L Calcium 9.0 Corrected Calcium 9.1 Phosphorus 2.5 Magnesium 1.8 Total Bilirubin 1.7 H D AST 115 H ALT 60 H Alkaline Phosphatase 158 H Total Protein 6.5 Albumin 3.9 Globulin 2.6 Albumin/Globulin Ratio 1.5 Quality Measures Quality Measures VTE prophylaxis Assessment & Plan Assessment Current Active Medications: Generic Name Dose Route Start Last Admin Trade Name Freq PRN Reason Stop Dose Admin Acetaminophen 650 mg 12/18/24 12:05 Acetaminophen 325 Mg Tablet PO 01/15/25 22:24 Q8H PRN Fever >100.5 Chlordiazepoxide HCl 25 mg 12/20/24 21:00 Chlordiazepoxide Hcl 25 Mg Capsule PO 12/25/24 20:59 BID KATIE Folic Acid 1 mg 12/16/24 22:45 12/19/24 20:57 Folic Acid 1 Mg Tablet PO 12/21/24 22:44 1 mg BID KATIE Administration Sodium Chloride 1,000 mls @ 60 mls/hr 12/19/24 14:47 12/19/24 15:01 Ns IV 01/18/25 14:46 60 mls/hr .[id number] KATIE Administration Labetalol HCl 10 mg 12/19/24 12:01 Labetalol Inj 5 Mg/Ml Vial 20 Ml IVP 01/15/25 22:34 Q6HR PRN SBP >180mmHg Lorazepam 0.5 mg 12/16/24 22:31 12/17/24 13:16 Lorazepam 2 Mg/Ml Vial IV 12/21/24 22:30 0.5 mg Q2HR PRN Administration CIWA SCORE 8-13 Lorazepam 1 mg 12/16/24 22:31 12/17/24 23:49 Lorazepam 2 Mg/Ml Vial IV 12/21/24 22:30 1 mg Q2HR PRN Administration CIWA SCORE 14-19 Lorazepam 2 mg 12/16/24 22:31 Lorazepam 2 Mg/Ml Vial IV 12/21/24 22:30 Q2HR PRN CIWA SCORE 20-25 Ondansetron HCl 4 mg 12/16/24 22:25 Ondansetron Inj 2 Mg/Ml Inj 2 Ml IV 01/15/25 22:24 Q6H PRN NAUSEA OR VOMITING Protocol Pantoprazole Sodium 40 mg 12/17/24 09:00 12/19/24 08:42 Pantoprazole Inj 40 Mg Vial IVP 01/16/25 08:59 40 mg QDAY KATIE Administration Propranolol HCl 10 mg 12/19/24 21:00 12/19/24 20:57 Propranolol 10 Mg Tablet PO 01/18/25 20:59 10 mg BID KATIE Administration Thiamine HCl 100 mg 12/17/24 09:00 12/19/24 20:57 Thiamine 100 Mg Tablet PO 12/22/24 08:59 100 mg BID KATIE Administration Plan A 59-year-old female with past medical history of hypertension, depression, alcohol abuse disorder was brought to the ED by her sister with chief complaints of sweating, paleness and confusion, admitted for hyponatremia and alcohol withdrawal # Hypoosmolar hyponatremia, resolving # Hypochloremia, resolved Ddx: Diuretic vs poor oral intake vs alcohol abuse, cirrhosis vs multifactorial -Patient was brought to the hospital with complaints of confusion and sweating. -Denies involuntary movements, loss of consciousness, nausea, vomitings -Patient had history of hypertension for which patient is taking valsartan-hydrochlorothiazide combination -On 12/16/2024, Na 119, S. osm 242> 3/4,Na 124, S. osm 249 > 3/5, sodium 130, osm 261 > 3/6, Na 130, osm 263 >3/7., Na 134, osm 268 -TSH is within normal limits Plan -No need of further saline infusions -Monitor sodium levels -Thiazide diuretic is withheld -Continue CICT protocol # Hypokalemia, hypophosphatemia, resolved -As of 12/20/2024, potassium is 3.7 and phosphorus is 2.5 -Likely due to poor oral intake in the setting of alcohol abuse Plan -Continue to monitor electrolytes and replete accordingly #History of hypertension -History of hypertension, on metoprolol and valsartan-hydrochlorothiazide -Blood pressures found to be stable during this hospital stay -Discontinue hydrochlorothiazide and add medications as needed #History of alcohol use disorder #Alcohol withdrawal syndrome #Alcohol-related hepatitis #Alcohol-related cirrhosis rule out #History of lower GI bleed Rest of the medical conditions to be treated as per primary team Thank you for allowing us to participate in the care of patient Patient plan of care was discussed with the attending physician, Dr. Shalonda Gaspar, PGY1 Attending Provider Attestation/Addendum Patient seen and examined with resident physician Dr. Amado. Note reviewed, agree with findings and recommendations.
[2024-12-20] MEDS: PANTOPRAZOLE INJ 40 MG VIAL IVP (09:50)
[2024-12-20 09:55] VITALS: BP 136/76; PULSE 85
[2024-12-20] MEDS: THIAMINE 100 MG TABLET PO (09:55)
[2024-12-20] MEDS: FOLIC ACID 1 MG TABLET PO (09:55)
[2024-12-20] MEDS: PROPRANOLOL 10 MG TABLET PO (09:55)
[2024-12-20 12:00] VITALS: BP 151/80; PULSE 81; PULSE 82; RESP 13; TEMP 36.4; O2SAT 99
--- NOTE | 2024-12-20 15:01 | ESDS_ITS ---
<Statement entered by Lynda Aguila DO - 12/21/24 07:32> I, Lynda Aguila DO, attest that I was physically present for the hernandez portions of the service and evaluated the patient with the resident and I reviewed and discussed the case with the resident and agree with the resident's findings and plans of care as documented above <Statement entered by Chloé Johnson MD - 12/20/24 16:47> I discussed with and supervised the finance intern physician who took care of this patient. I personally saw and examined the patient and discussed the assessment and plan with the entire medicine team, including my attending , I agree with most of the assessment and plan as documented below Chloé Johnson M.D. PGY-2 Planned Discharge Date 12/20/24 DS: Providers Provider Date of admission: 12/16/24 21:41 Primary care physician: Physician Chyna Primary/Family Admitting Provider: Emerald Vincent MD Attending Provider on Admission: Lynda Aguila DO Consults: 12/16/24 22:37 Consult to Nephrology Stat Comment: Severe asymptomatic Hyponatremia Consulting Provider: Rafia Liz 12/17/24 08:41 Consult to Gastroenterology Urgent Comment: rule out GI bleed Consulting Provider: Isael Hernandez 12/19/24 11:55 Referral Physical Therapy Routine Comment: Physician Instructions: Attending Provider on DC: Lynda Aguila DO Discharging Provider: Juan Pablo Jo MD DS: Diagnosis Problem List Completed Was Problem List Reviewed/Reconciled?: Yes Hospital Course Hospital Course Hospital course: 59-year-old female patient with past medical history of hypertension, alcohol use disorder presented to the ED with her sister after she started to experience nausea and vomiting associated with chills and tremors. Patient reported that for the past 45 days she started to binge drink wine after she retired. Her last drink was the morning of admission. She mentioned that her PCP prescribed her pills to help with the alcohol drinking however she stopped taking them. On further questioning patient said that he has had multiple episodes of alcohol withdrawal however she did not experience any seizure or visual hallucination in the past. On further questioning patient also reported that 2 weeks ago she started to see fresh blood per rectum, possibly from her hemorrhoids. Patient denied any hematemesis, denied any jaundice, itching, abdominal distention. Patient denied any recent fall. In the ED, patient was found to have severe hyponatremia 119. Patient was given benzodiazepines and thiamine in the ED. Nephrology is consulted for management of hyponatremia, which was treated with IV fluids for both fluid restriction. Hyponatremia slowly resolved. Patient received treatment for alcohol withdrawal with [facility] protocol, scheduled phenobarbital transitioned to Librium, slowly tapered down. Patient received EGD which showed grade 1 varices without bleeding, patient was started on propranolol. Patient medically cleared and stable for discharge. Discharge plan: Started on the following medications: -Propranolol 10 mg take twice daily -Thiamine vitamin 100 mg take twice daily -Folic acid 1 mg take twice daily -Librium 25 mg, take as needed for symptoms of alcohol withdrawal -Valsartan 80 mg once daily The following medications have been stopped: Metoprolol 100 mg -Valsartan?hydrochlorothiazide once daily Continue taking all medications as previously prescribed Please follow-up with your PCP in 1-2 weeks Return to the ED if you have new or worsening symptoms Diagnoses: #Chronic alcohol use #Alcohol withdrawal syndrome #Alcohol-related hepatitis #Alcohol-related cirrhosis rule out #Severe asymptomatic hyponatremia, resolved #History of lower GI bleed #History of hypertension Plan of care discussed with senior resident Dr. Johnson PGY?[address] Aguila. Juan Pablo Jo MD PGY?1 Time Spent with Patient Time attestation: Total time spent providing and/or coordinating discharge services: > 30 min Exam Vital Signs Temp Pulse Resp BP Pulse Ox O2 Del Method O2 Flow Rate 97.6 F 81 13 151/80 H 99 Room Air 2 12/20/24 12:12/20/24 12:12/20/24 12:12/20/24 12:12/20/24 12:12/20/24 12:12/18/24 20:49 Narrative Exam PE: Gen: Well-developed and well-nourished. HEENT: NCAT, PERRLA, EOMI, MMM, anicteric conjunctivae. CVS: normal S1 and S2. RRR. No M/R/G. Resp: CTA B/L. No rhonchi, rales, crackles or wheezing. Abd: soft, non-tender, non-distended. MSK: Good ROM in BUE & BLE. No edema or rash. Neuro: CN II-XII grossly intact. Strength 5/5 in BUE & BLE. Alert and oriented x3. Discharge Plan Plan Patient Disposition: HOME (Self Care) Patient condition on transfer: Stable Care Plan Goals: Started on the following medications: -Propranolol 10 mg take twice daily -Thiamine vitamin 100 mg take twice daily -Folic acid 1 mg take twice daily -Librium 25 mg, take as needed for symptoms of alcohol withdrawal -Valsartan 80 mg once daily The following medications have been stopped: Metoprolol 100 mg -Valsartan?hydrochlorothiazide once daily Continue taking all medications as previously prescribed Please follow-up with your PCP in 1-2 weeks Return to the ED if you have new or worsening symptoms Prescriptions/Referrals Prescriptions/Med Rec: New thiamine mononitrate (vit B1) 100 mg Tablet 100 mg PO BID 30 Days Qty: 60 0RF propranolol 10 mg Tablet 10 mg PO BID 30 Days Qty: 60 0RF folic acid 1 mg Tablet 1 mg PO BID 30 Days Qty: 60 0RF valsartan 80 mg tablet 80 mg PO QDAY 30 Days Qty: 30 0RF Continued omeprazole 20 mg capsule,delayed release(DR/EC) 20 mg PO QDAY Patient Comments: TAKE 1 CAPSULE BY MOUTH EVERY DAY escitalopram oxalate 10 mg tablet 20 mg PO QDAY Patient Comments: TAKE 1 TABLET BY MOUTH EVERY DAY FOR 30 DAYS Discontinued valsartan-hydrochlorothiazide 160-25 mg tablet 1 tab PO QDAY Patient Comments: TAKE 1 TABLET BY MOUTH EVERY DAY metoprolol succinate 100 mg tablet extended release 24 hr 100 mg PO QDAY Patient Comments: TAKE 1 TABLET BY MOUTH EVERY DAY Referrals: No Primary/Family,Physician [Primary Care Provider] - Patient/Caregiver Discharge Instructions Discharge Activity: resume usual activities Education Materials: Social Drinking vs Problem Drinking, Depression: Tips to Help Yourself, Alcohol Withdrawal: What to Expect Print Language: Spanish Stand Alone Forms: Leeann Award Info., Patient Portal Info Letter Discharge Order Discharge Orders: Discharge (Routine); Ordered 12/20/24 Ordered By: Juan Pablo Jo Quality Discharge Quality Measures VTE prophylaxis
== END 2024-12-20 14:00 | disposition home or self-care (01) | DRG 775 ==
LOC: SERX 21:04 → SERHOLD 21:58 → S3NX 12-17 06:09 → S2NX 12-17 22:33
PROVIDERS: Specialist; Student in an Organized Health Care Education/Training Program; Admitting Provider Student in an Organized Health Care Education/Training Program; Emergency Provider Emergency Medicine; Visit Provider Internal Medicine
PROC: (CPT 43239; principal; 2024-12-18 16:45)
DX: F10.239 Alcohol dependence with withdrawal, unspecified (principal); K29.71 Gastritis, unspecified, with bleeding; E87.1 Hypo-osmolality and hyponatremia; I85.10 Secondary esophageal varices without bleeding; I10 Essential (primary) hypertension; K70.10 Alcoholic hepatitis without ascites; K64.9 Unspecified hemorrhoids; K70.30 Alcoholic cirrhosis of liver without ascites; F41.9 Anxiety disorder, unspecified; E87.8 Other disorders of electrolyte and fluid balance, not elsewhere classified; F32.A Depression, unspecified; Y90.0 Blood alcohol level of less than 20 mg/100 ml; E87.6 Hypokalemia; E83.39 Other disorders of phosphorus metabolism; Z79.899 Other long term (current) drug therapy; Z86.73 Personal history of transient ischemic attack (TIA), and cerebral infarction without residual deficits
CPT/HCPCS: 36415; 71045; 76700; 80048; 80053; 80061; 80074; 80307; 80320; 81001; 83735; 83880; 84100; 84295; 84300; 84443; 84484; 85025; 85610; 85730; 87811; 93005; 93225; 96127; 96361; 96372; 96374; 96375; 97162; 99285; A4216; J0696; J1200; J2060; J2250; J2470; J2560; J3010; J3411; J3475; J3490; J7030; J7050; J7070; A9270; G0480